=== PATIENT | male | born 1960 | race Caucasian/White ===

== ENCOUNTER 2017-04-24 08:48 | Day surgery (SDC) | payer OTHER, SELFPAY ==
[2017-04-24 09:10] VITALS: BP 132/87; PULSE 83; RESP 18; TEMP 37.1; O2SAT 97; BMI 34.2
[2017-04-24] MEDS: Cefazolin 2 GM in 0.9% Normal Saline 100 ML IV (12:02)
[2017-04-24] MEDS: Mupirocin Ointment 22gm Tube 1 APPLIC (12:31)
--- NOTE | 2017-04-24 12:35 | PCM.DC.ORTHO ---
Discharge Diet: No Restrictions - Leave dressing intact until post op visit May use hand as tolerated, change dressing if gets dirty Call with concerns Discharge Activity: May Not Drive May shower in (days): 1 Ice area for (Minutes): 20 - Every hour while awake. Weight Bearing Status: Weight bearing as tolerated Keep extremity elevated above heart level: Operative Extremity Call your doctor if your incision/area has: Continuous Slow Oozing, Sudden Increased Bleeding, Increased Pain/ Swelling, Increased Redness, Foul Smelling Discharge Call your doctor if you observe: Fever of 101 or Higher, Coldness, Increased Pain, Numbness or Tingling, Change in Color, Calf discomfort Allergies/Adverse Reactions: Allergies sulfadimethoxine Allergy (Mild, Verified 04/17/17 09:43) family history of reaction Medications to take at Discharge aspirin 81 mg chewable tablet 81 mg PO ONCE 04/14/17 lisinopril 20 mg tablet 20 mg PO QDAY 04/14/17 omeprazole 20 mg capsule,delayed release 40 mg PO DAILY cap 04/14/17 venlafaxine ER 75 mg capsule,extended release 24 hr 75 mg PO QDAY 04/14/17 Primary Care Physician: Vilma Page PA [Primary Care Provider] - Please Follow Up With: Jeri Pfeiffer, - [phone]
--- NOTE | 2017-04-24 12:38 | OP.PCM_ITS ---
Report of Operation Date of Procedure: 04/24/17 Pre-Operative Diagnosis: right carpal tunnel syndrome Post-Operative Diagnosis: same Surgery/Procedure Performed:: right carpal tunnel release Type of Anesthesia:: Ian Shay Anesthesiologist: Milton Dumont Estimated Blood Loss (mL): minimal Fluids Replaced: 800cc lr Description of Procedure: Preoperative note Patient is a 56 year old patient with nerve conduction study confirming carpal tunnel syndrome. Patient failed conservative treatment for carpal tunnel elected proceed with right carpal tunnel release. Risks benefits and alternatives surgery discussed with patient. Risks including but not limited to blood loss, blood clot, infection, neurovascular injury, failure procedure, loss of life and loss of limb. Patient is aware like proceed with right carpal tunnel release. Operative note Patient seen and examined preoperative holding area. right hand was marked. History and physical and consent reviewed. Patient was brought to the operating room placed supine on the operating table. Sign in, anesthesia, antibiotics were administered. right upper extremity was prepped and draped after Ian block was initiated. All bony prominences well-padded SCDs placed on bilateral lower extremities. We marked out our incisions for our carpal tunnel release at the intersection of Elio's line in the fourth ray flexed. We extended about a centimeter and a half. Timeout was performed. We then checked ensure that the Ian block was working with pickups which it was. We then used a 15 blade to make a skin incision. We then dissected down tenotomy syllable of the transverse carpal ligament. We then used a new 15 blade cut through the transverse carpal ligament down to the level of the median nerve. We then further released the median nerve the combination of the 15 blade and tenotomies. The nerve was grayish in color and adherent to the transverse carpal ligament volarly. We released the transverse carpal ligament distally to the fat pad and then proximally under standard technique. We then palpated to ensure that we released all of the transverse carpal ligament which we did. We irrigated the incision with copious amounts of sterile saline. All bleeders were coagulated. The incision was closed with interrupted 4-0 nylon stitches. Tourniquet was deflated for total working time of 14 minutes. Patient tolerated procedure well there were no complications. Patient transferred to recovery room in stable condition. Postoperative note Hospital pharmacy has prescription Leave dressing clean dry and intact Follow-up in 2 weeks Call with concerns This note was generated with [employer] software. It may contain incorrect words, spelling, and punctuation that were not noted in checking the note before signing.
[2017-04-24 12:45] VITALS: BP 117/75; BP 132/87; PULSE 70; RESP 16; TEMP 36.2; O2SAT 95
[2017-04-24 12:50] VITALS: BP 116/75; BP 132/87; PULSE 73; RESP 16; O2SAT 96
[2017-04-24 12:55] VITALS: BP 121/87; BP 132/87; PULSE 63; RESP 16; O2SAT 97
[2017-04-24 13:00] VITALS: BP 109/83; BP 132/87; PULSE 71; RESP 16; TEMP 36.4; O2SAT 96
[2017-04-24 13:30] VITALS: BP 132/87
== END 2017-04-24 13:35 | disposition home or self-care (01) ==
LOC: SDC 08:51 → AC 08:51
PROVIDERS: Family Provider Physician Assistant; PCP Physician Assistant; Visit Provider Orthopaedic Surgery
PROC: (CPT 64721; principal; 2017-04-24 10:50)
DX: G56.01 Carpal tunnel syndrome, right upper limb (principal); M19.042 Primary osteoarthritis, left hand; M19.041 Primary osteoarthritis, right hand; I10 Essential (primary) hypertension; I34.1 Nonrheumatic mitral (valve) prolapse; G47.30 Sleep apnea, unspecified; K21.9 Gastro-esophageal reflux disease without esophagitis; Z79.82 Long term (current) use of aspirin; Z79.899 Other long term (current) drug therapy; F32.9 Major depressive disorder, single episode, unspecified; F41.9 Anxiety disorder, unspecified; Z87.891 Personal history of nicotine dependence; Z86.718 Personal history of other venous thrombosis and embolism; Z86.711 Personal history of pulmonary embolism
CPT/HCPCS: 01810; 64721; J7120

== ENCOUNTER → 2017-06-03 09:07 | Outpatient (CLI) | payer OTHER, SELFPAY ==
--- NOTE | 2017-06-03 09:30 | RAD_ITS ---
STUDY: AIR-CONTRAST UPPER GI SERIES AND SMALL BOWEL FOLLOW-THROUGH EXAMINATION. REASON FOR EXAM: Male, 56 years old. Epigastric pain and chronic gastroesophageal reflux disease. FLUOROSCOPY TIME (if supplied): (1:06) minutes/seconds TECHNIQUE: The patient ingested barium. Multiple images of the esophagus, stomach and duodenum were obtained. Following this, a small bowel follow-through examination was performed. COMPARISON: None. FINDINGS: There is evidence of a moderate-sized hiatal hernia with gastroesophageal reflux. The remainder of the stomach and duodenum is unremarkable A small bowel follow-through examination was obtained. The small bowel transit is normal. There is no evidence of intrinsic or extrinsic small bowel disease. The terminal ileum is unremarkable. RAD/Upper GI/w Small Bowel IMPRESSION: Moderate sized hiatal hernia with gastroesophageal reflux. Electronically Signed: Atul Vicente MD at 13:52 EDT Tel [phone], Service support ,
== END ==
PROVIDERS: Family Provider Physician Assistant; PCP Physician Assistant; Visit Provider Surgery
DX: K21.9 Gastro-esophageal reflux disease without esophagitis (principal); K44.9 Diaphragmatic hernia without obstruction or gangrene
CPT/HCPCS: 74249

== ENCOUNTER 2017-07-06 05:51 | Day surgery (SDC) | payer OTHER, SELFPAY ==
[2017-07-06 06:12] VITALS: BP 161/82; PULSE 75; RESP 18; TEMP 36.2; O2SAT 98; BMI 35.4
--- NOTE | 2017-07-06 07:12 | PCM.OPRPT ---
Problem List (1) Gastro-esophageal reflux disease without esophagitis Status: Acute (2) Epigastric pain Status: Acute (3) Heartburn Status: Acute Report of Operation Date of Procedure: 07/06/17 Pre-Operative Diagnosis: k21.9 gastroesophageal reflux disease without esophagitis. r10.13 epigastric abdominal pain. r12 heartburn Post-Operative Diagnosis: Same Surgery/Procedure Performed:: 19325, 17035 esophagogastroduodenoscopy with 48 hour pH probe Type of Anesthesia:: MAC Anesthesiologist: Nico Vital Description of Procedure: Patient was brought into the endoscopy suite. Back of his throat was sprayed with Cetacaine spray. A bite-block was placed. He was placed in the left lateral decubitus position. He was given graded anesthesia. The scope was inserted in the back of the oropharynx and directed down through the esophagus into the stomach and into the duodenum without difficulty operative findings: 1. Duodenum: Normal appearance no mass lesions. 2. Stomach: Normal appearance no mass lesions no ulcerations. 3. Esophagus: Normal appearance no mass lesions patient Z line was at 40 cm and he did have a sliding type of hiatal hernia. Marked the pH probe to 34 cm. Placed the pH probe back in the oropharynx and directed it down through the esophagus to the appropriately marked line. Suction was applied. PH probe was deployed. Lippa scope was then inserted back into the oropharynx and directed down through the esophagus and a photograph was obtained showing the probe to be in good placement. He tolerated the procedure well. - Admit VTE Documentation VTE Present on Admission: No VTE Mechan Device Prophylaxis: None VTE Pharm Prophylaxis ordered?: No Reason prophylaxis not ordered:: Treatment Not Indicated
[2017-07-06 07:13] VITALS: BP 122/86; BP 161/82; PULSE 75; RESP 16; TEMP 36.4; O2SAT 95
[2017-07-06 07:20] VITALS: BP 149/100; BP 161/82; PULSE 70; RESP 16; O2SAT 95
[2017-07-06 07:25] VITALS: BP 135/86; BP 161/82; PULSE 68; RESP 16; O2SAT 96
[2017-07-06 07:26] VITALS: BP 137/93; BP 161/82; PULSE 68; RESP 16; TEMP 37.2; O2SAT 96
[2017-07-06 07:45] VITALS: BP 161/82
== END 2017-07-06 08:00 | disposition home or self-care (01) ==
LOC: EN 05:52 → AC 05:53
PROVIDERS: Family Provider Physician Assistant; PCP Physician Assistant; Visit Provider Surgery
PROC: (CPT 43235; principal; 2017-07-06 06:30)
DX: K21.9 Gastro-esophageal reflux disease without esophagitis (principal); K44.9 Diaphragmatic hernia without obstruction or gangrene; I34.1 Nonrheumatic mitral (valve) prolapse; I10 Essential (primary) hypertension; G47.30 Sleep apnea, unspecified; F41.9 Anxiety disorder, unspecified; F32.9 Major depressive disorder, single episode, unspecified; R10.13 Epigastric pain; Z79.82 Long term (current) use of aspirin; Z79.899 Other long term (current) drug therapy; Z87.891 Personal history of nicotine dependence; Z86.718 Personal history of other venous thrombosis and embolism; Z86.711 Personal history of pulmonary embolism
CPT/HCPCS: 43235; 91035; J7120

== ENCOUNTER 2017-08-06 07:47 | Day surgery (SDC) | payer OTHER, SELFPAY ==
[2017-08-06 07:58] VITALS: BP 143/97; PULSE 72; RESP 18; TEMP 36.4; O2SAT 97
--- NOTE | 2017-08-06 08:45 | NURSING ---
ESOPHAGEAL MANOMETRY COMPLETED TO LEFT NARE. LIDOCAINE JELLY USED TO LEFT NARE PRIOR TO INSERTION OF MANOMETRY CATHETER. PT TOLERATED PROCEDURE WELL, NO VOMITING, NO BLEEDING NOTED. PT DISCHARGED, DENIES ANY FURTHER QUESTIONS.
== END 2017-08-06 13:00 | disposition home or self-care (01) ==
LOC: EN 07:48
PROVIDERS: Family Provider Physician Assistant; PCP Physician Assistant; Visit Provider Surgery
PROC: F00ZJWZ Instrumental Swallowing and Oral Function Assessment using Swallowing Equipment (ICD-10-PCS; CPT 43235; principal; 2017-08-06 07:55)
DX: K21.9 Gastro-esophageal reflux disease without esophagitis (principal)
CPT/HCPCS: 91010

== ENCOUNTER 2017-08-13 09:27 | Day surgery (SDC) | payer OTHER, SELFPAY ==
--- NOTE | 2017-08-10 13:10 | EKG12_ITS ---
Test Reason : PRE-OP Blood Pressure : / mmHG Vent. Rate : 074 BPM Atrial Rate : 074 BPM P-R Int : 178 ms QRS Dur : 092 ms QT Int : 372 ms P-R-T Axes : 028 018 029 degrees QTc Int : 412 ms Normal sinus rhythm Normal ECG Confirmed by YANELIS XIONG, DALE ([id number]), assistant film editor DEEPA HILL ([id number]) on 08/11/2017 3:16:12 PM Referred By: Alejandro Quarles Confirmed By:DALE HILARIO MD
[2017-08-10 13:14] LABS: Hematocrit 42.5 % (40-54); Hemoglobin 14.2 g/dl (13.0-16.5); Mean Corp Hgb Conc 33.4 g/gl (32-36); Mean Corpuscular Hgb 29.7 pg (27.0-32.0); Mean Corpuscular Volume 88.9 fL (80-94); Mean Platelet Vol. 11.8 fl (6.2-12.0); Platelet Count 188 K/mm3 (150-450); RBC Distribution Width CV 12.6 % (11.6-14.6); RBC Distribution Width SD 40.7 fl (35.1-43.9); Red Blood Count 4.78 M/mm3 (4.6-6.2); White Blood Count 5.7 K/mm3 (4.4-11.0)
[2017-08-10 13:15] LABS: Scan Indicated on CBC? Y/N NO
[2017-08-10 13:39] LABS: Anion Gap 5 (5-15); BUN 15 mg/dL (7-18); BUN/Creat Ratio 17.3 RATIO (10-20); Calcium,Total 9.1 mg/dL (8.5-10.1); Chloride 107 mmol/L (98-107); Creatinine, Serum 0.87 mg/dL (0.70-1.30); EST Glomerular Filtration Rate 97 mL/min (>60); Est Glom Filt Rate - Afr Amer 118 mL/min (>60); Glucose 94 mg/dL (74-106); Potassium 4.2 mmol/L (3.5-5.1); Sodium Level 140 mmol/L (136-145)
[2017-08-13] VITALS (13 sets, daily range): BP systolic 123–158; BP diastolic 71–98; PULSE 64–81; RESP 16–18; TEMP 36.2–37.4; O2SAT 93–99; BMI 35.9
--- NOTE | 2017-08-13 11:44 | OP.PCM_ITS ---
Problem List (1) Gastro-esophageal reflux disease without esophagitis Status: Acute (2) Epigastric pain Status: Acute (3) Heartburn Status: Acute Report of Operation Date of Procedure: 08/13/17 Pre-Operative Diagnosis: k21.9 gastroesophageal reflux disease without esophagitis. r10.13 epigastric abdominal pain. r12 heartburn Post-Operative Diagnosis: same Surgery/Procedure Performed:: Laparoscopic Klaudia fundoplication Type of Anesthesia:: General Anesthesiologist: Enmanuel Melissa Description of Procedure: Patient was brought in the operating room. Placed supine on the bed. Under excellent general endotracheal intubation. The legs were placed up in stirrups and the same bag was deflated so that he would not move on the bed. Patient was placed in the head up position. The abdomen was sterilely prepped and draped in the usual fashion. Local was injected above the umbilicus. Dissection was carried down to the fascia. Fascia was grasped with a Yolanda. Varies needle was placed inside the abdomen. The abdomen was insufflated to 15 torr. A 10/12 trocar was placed. I then placed for other #5 trochars to wear on the right side along the costal margin to her placed on the left side along the costal margin. All of these under direct visualization without injury to underlying structures. Right lateral port liver retractor was placed inside the abdomen and retracted the left lobe of the liver in a anterior cephalad direction I started along the lesser curvature of the stomach and took this down with a harmonic dissector I dissected down to the right side of the curve. I dissected the crura off of the esophagus. I took this superiorly around the diaphragmatic curve. This dissection went quite well little to no blood loss. I dissected posterior underneath the esophagus and identified the inferior aspect of the left side of the curve. I then went to about the mid greater curvature the stomach and took the omentum off of this staying approximately 2-1/2-3 cm away from the stomach. I easily entered and nice avascular plane and dissected the rest of the stomach going up to the fundus off of the omentum. I then came down to the short gastrics I took this down with harmonic dissector once again excellent hemostasis without injury to the spleen came to the left side of the crura and then dissected the rest of the crura off of the esophagus. Once again excellent hemostasis was obtained. A [place] drain was placed around the esophagus and was retracted in a left superior direction by crew was identified quite nicely. A 50 Stateless bougie was placed down through the esophagus. Using the Ethicon suturing device I placed O Surgidac into the left and right crura ?2 and sutured these knots down in a fisherman's knot. I closed the diaphragmatic hiatus just so it fit to the esophagus with only 2 mm of space circumferentially around the esophagus. I now had a nice wide open posterior aspect of the esophagus I remove the bougie I placed the fundus of the stomach posterior to itself and let it rest it did not retract and there was no tension. I replaced the 50 Stateless bougie I then once again using the Ethicon suturing device place a O [place] through the fundus and through the esophagus into the greater curvature the stomach I sutured this down with a fisherman's knot I placed 1 more suture onto the fundus and into the greater curvature the stomach this time not going into the esophagus I sutured this down with a fisherman's knot as well I remove the 50 Stateless bougie a nice loose floppy wrap was completed. I had excellent hemostasis. I remove the [place] drain. I remove the liver retractor. Once again good hemostasis was noted. Fortunately #5 trochars were removed under direct visualization good hemostasis was noted. The fascia of the 1012 trocar was then closed with a [id number] stitch of 0 Vicryl skin incisions were closed with subcuticular stitches of 4-0 Monocryl Steri-Strips are applied sterile dressings were applied and the patient tolerated the procedure well. - Admit VTE Documentation VTE Present on Admission: No VTE Mechan Device Prophylaxis: SCD's VTE Pharm Prophylaxis ordered?: No Reason prophylaxis not ordered:: Treatment Not Indicated
[2017-08-13] MEDS: Lactated Ringers 1,000 ML 70 ML IV (11:45)
[2017-08-13] MEDS: Cefazolin 2 GM in 0.9% Normal Saline 100 ML IV (11:53)
[2017-08-13] MEDS: BUPIVACAINE LIPOSOME/PF 20 ML VIAL OPERA.SITE (13:15)
[2017-08-13] MEDS: HYDROmorphone 1 MG/ML Syringe IV (16:09)
[2017-08-13] MEDS: Cefazolin 1 GM/50 ML BAG IV (19:39)
[2017-08-14] MEDS: HYDROmorphone 1 MG/ML Syringe IV (00:09)
[2017-08-14 01:45] VITALS: BP 139/90; PULSE 80; RESP 18; TEMP 36.8; O2SAT 95
[2017-08-14] MEDS: Lactated Ringers 1,000 ML 70 ML IV (02:35)
[2017-08-14] MEDS: Cefazolin 1 GM/50 ML BAG IV (02:50)
[2017-08-14 07:52] VITALS: BP 165/99; PULSE 85; RESP 18; TEMP 36.7; O2SAT 96
[2017-08-14 07:55] VITALS: O2SAT 96
--- NOTE | 2017-08-14 07:56 | PCM.DC.GS ---
Discharge Diet: Soft diet - Stay with liquids for the first week. Discharge Activity: May Not Drive - for 1 week or while taking narcotic pain medicine. May shower in (days): 1 Lifting Restrictions: 10 pounds Call your doctor if your incision/area has: Continuous Slow Oozing, Sudden Increased Bleeding, Increased Pain/ Swelling, Increased Redness, Foul Smelling Discharge Call your doctor if you observe: Fever of 101 or Higher Suture Line Care: Avoid Pulling/Pushing, Avoid Pinching/Bending Additional Dressing/Incision Instructions:: Change or remove dressing in 4 days. Leave steri-strips in place for 1 week. Allergies/Adverse Reactions: Allergies sulfadimethoxine Allergy (Mild, Verified 08/07/17 09:00) family history of reaction Medications to take at Discharge aspirin 81 mg chewable tablet 81 mg PO DAILY 04/14/17 lisinopril 20 mg tablet 20 mg PO QDAY 04/14/17 omeprazole 20 mg capsule,delayed release 40 mg PO DAILY cap 04/14/17 venlafaxine ER 75 mg capsule,extended release 24 hr 75 mg PO QDAY 04/14/17 saw palmetto 500 mg capsule 500 mg PO DAILY 05/26/17 Primary Care Physician: Vilma Page PA [Primary Care Provider] -
== END 2017-08-14 09:26 | disposition home or self-care (01) ==
LOC: SDC 09:27 → AC 09:28 → MS3 08-14 10:58
PROVIDERS: Family Provider Physician Assistant; PCP Physician Assistant; Visit Provider Surgery
PROC: (CPT 43325; principal; 2017-08-13 10:55)
DX: K21.9 Gastro-esophageal reflux disease without esophagitis (principal); I34.1 Nonrheumatic mitral (valve) prolapse; I10 Essential (primary) hypertension; F32.9 Major depressive disorder, single episode, unspecified; F41.9 Anxiety disorder, unspecified; G47.30 Sleep apnea, unspecified; Z87.891 Personal history of nicotine dependence; Z79.82 Long term (current) use of aspirin; Z79.899 Other long term (current) drug therapy
CPT/HCPCS: 00790; 43280; 36415; 80048; 85027; 93005; 94762; J7120; J3490

== ENCOUNTER → 2018-12-23 08:05 | Outpatient (CLI) | payer OTHER, SELFPAY ==
[2018-12-23 08:04] VITALS: BMI 34.2
--- NOTE | 2018-12-23 08:08 | RAD_ITS ---
STUDY: X-RAY - LEFT KNEE REASON FOR EXAM: Pain. TECHNIQUE: 4 view(s) of the knee. COMPARISON: None. FINDINGS: Normal visualized distal femur. There are ossifications adjacent to the anterior tibial tubercle, a sequelae of remote Denisha-Schlatter's disease. Normal proximal tibiofibular articulation. Normal medial femorotibial compartment. Normal lateral femorotibial compartment. There are minimal marginal osteophytes of the patella without joint space narrowing of the patellofemoral articulation. The soft tissue structures are unremarkable. RAD/Knee 4 or More Views IMPRESSION: Sequelae of Denisha-Schlatter's disease. Minimal marginal osteophytes of the patella. Electronically Signed: Deandre Wooten MD at 15:03 EDT Tel , Service support ,
== END ==
PROVIDERS: Family Provider Physician Assistant; PCP Physician Assistant; Referring Provider Orthopaedic Surgery; Visit Provider Orthopaedic Surgery
DX: M92.52 Juvenile osteochondrosis of tibia tubercle (principal); M25.762 Osteophyte, left knee
CPT/HCPCS: 73564

== ENCOUNTER → 2018-12-30 12:55 | Outpatient (CLI) | payer OTHER, SELFPAY ==
[2018-12-30 09:46] VITALS: BMI 34.2
[2018-12-30 13:21] LABS: Pathologist Comment May follow
[2018-12-30 13:52] LABS: RBC /Synovial Fluid 0.079 10^6/uL (0); Synovial Fld Mononuclear WBC % 80.2 %; Synovial Fld Polynuclear WBC # 0.092 10^3/uL; Synovial Fld Polynuclear WBC % 19.8 %
[2018-12-30 14:25] LABS: AUTO B FLUID DILUENT BKGD CT WBC <0.1 RBC <0.01 (W<.1,R<.01); Color / Synovial Fluid Red (Pale Yellow); Source / Synovial Fluid KNEE; Source- Body Fluid SYNOVIAL
[2018-12-30 14:26] LABS: Appearance /Synovial Fluid Cloudy (CLEAR); Viscosity / Synovial Fluid Viscous (HIGH)
[2018-12-30 14:32] LABS: Lymph 30 %; Monocyte /Synovial Fluid 46 %; Neutrophil 24 % (0-25)
[2018-12-30 14:36] LABS: Body Fluid QC Type(s) BF1Q, BF2Q
[2018-12-31 10:11] LABS: Pathologist Review Reviewed
[2018-12-31 16:10] LABS: GLUCOSE, SYNOVIAL FLUID 141 mg/dL (.); PROTEIN, SYNOVIAL FLUID 3.7 g/dL (.)
== END ==
PROVIDERS: Family Provider Physician Assistant; PCP Physician Assistant; Referring Provider Orthopaedic Surgery; Visit Provider Orthopaedic Surgery
DX: M25.562 Pain in left knee (principal)
CPT/HCPCS: 82945; 84157; 87070; 87075; 87205; 89050; 89051; 89060

== ENCOUNTER 2020-02-09 10:00 | Outpatient (RCR) | payer OTHER, SELFPAY ==
[2018-12-30 09:46] VITALS: BMI 34.2
--- NOTE | 2020-01-24 10:30 | HP.PTEVAL ---
Patient's Visit Information LACEY NEWTON Jr. is a 59 year old M referred to Physical Therapy by RTISHA Barry with a diagnosis of LOW BACK PAIN POTENTIALLY ASSOCIATED WITH RADICULOPATHY. Date of Evaluation: 01/24/20 Physical Therapist: Magda Levine, PT, Cert MDT - Visit Plan Frequency: 2-3x /Week Duration: 4-6 Weeks Plan: US, E-STIM WITH MH OR CP, POSTURE CORRECTION/STRENGTHENING, INSTRUCTION IN APPROPRIATE BODY MECHANICS AND ACTIVITY MODIFICATIONS. DLS STARTING WITH A NEUTRAL SPINE PROGRESSING ROM TOLERATED. SHARDA LE ROM, STRETCHING AND STRENGTHENING. HEP INSTRUCTION. 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 ON INTERMITTENT FOR THIS - 9 DAYS OFF THIS YEAR AND 6 OF THEM HAVE BEEN IN THE LAST 3 WEEKS. Present symptoms: SHARDA LOW BACK PAIN. RIGHT GREATER THAN LEFT TODAY BUT NORMALLY FOR THE LAST 6-8 MONTHS WORSE ON THE LEFT. LEFT HIP, THIGH, LEG AND ANKLE PAIN NUMBNESS AND TINGLING. RIGHT THIGH PAIN, NUMBNESS AND TINGLING TO THE KNEE. RIGHT THIGH IS ALWAYS NUMB. SHARDA KNEE PAIN. Present since: YEARS. Pain Scale: WORST 8/10, LEAST 2/10. Currently: 5/10. WORSENING. Commenced as a result of: NO APPARENT REASON. Symptoms at onset: BACK. Worse: SQUATTING AND STANDING BACK UP, SITTING, STANDING, WALKING, LIFTING, BENDING. Better: SOMETIMES ICE, SOMETIMES HEAT, SOMTIMES LYING ON THE FLOOR WITH LEGS UP. Disturbed sleep: YES. Previous history/Previous treatment: CHIROPRACTOR. PHYSICAL THERPAY. NO GABY'S. NO BACK SURGERY. NO PRESCRIPTION PAIN MEDICINES BUT HAS TRIED SOME MUSCLE RELAXERS WITHOUT BENEFIT. Treatment this episode: CHIROPRACTOR 3 TIMES - HASN'T HELPED. STEROID ABOUT 3 WEEKS AGO WITH TEMPORARY BENEFIT. Coughing/sneezing/straining: POSITIVE. Gait: LIMPING MORE ON RIGHT LE NOW. TIME AND DISTANCE LIMITED. CAN'T STAND UP STRAIGHT. Difficulty initiating urinatin: YES BUT NO LOSS OF BOWEL OR BLADDER CONTROL. Accidents: MULTIPLE ACCIDENTS - NONE RECENT. Unexplained weight loss: NO. Imaging: MRI PENDING 01/30/20 OF BACK. RECENT BACK X-RAY SHOWS MILD TO MODERATE DEGENERATIVE CHANGES OF CARYL SPINE WHICH ARE UNCHANGED FROM 12/29/18. DISC SPACE NARROWING L45 AND L5S1. PMH: H/O BLOOD CLOTS, PSORIATIC ARTHRITIS, PSORIASIS, SLEEP APNEA, REFLUX, HYPERLIPIDEMIA, SINUSITIS, HTN, DEPRESSION, H/O RIGHT KNEE ARTHROSCOPIC SX, H/O R RCR ABOUT 10 YEARS AGO. - Objective Sitting/Standing Posture: POOR. PATIENT FREQUENT SHIFTS POSITION IN SITTING DURING SUBJECTIVE PORTION OF EVAL. Lordosis: REDUCED. Lateral shift: NO. Relevant shift: N/A. Active Correction of posture: WORSE. Other Observations: INDEP ANTALGIC GAIT INTO PT WITH DECREASED CADANCE, INCREASED GUARDING, INCREASED TRUNK FLEXION AND LIMP ON RIGHT LE. Motor deficit: SHARDA LE STRENGTH GROSSLY 5/5 EXCEPT RIGHT HIP 4-/5, LEFT HIP 4/5. Sensory deficit: RIGHT THIGH. ROM deficit: TIGHT SHARDA HS'S. Reflexes: SHARDA LE'S 2/3. Dural Signs: POSITIVE SHARDA LE'S RIGHT > LEFT. Lumbar mvmt loss: flex - MIN. ext - MIN. R SG - MOD. L SG - MIN. PATIENT C/O INCRASED LOW BACK PAIN WITH LUMBAR ROM TESTING ALL PLANES. Core strength: POOR. Palpation: TENDERNESS WITH PALPATION OF THE LOWER THORACIC SPINE AND RIGHT LUMBAR PARASPINALS. INCREASED MUSCLE TONE RIGHT PARASPINALS. NOT TENDER OF L345S1 SPINIOUS PROCESSES. TREATMENT: NEUROMUSCULAR REEDUCATION - RETRAINING OF MVMT AND POSTURE FOR SITTING, LYING AND STANDING ACTIVITIES. - Goals Goal 1:: DECREASE C/O BACK AND SHARDA LE SX'S. Goal Time Frame: 4-6 Weeks Goal 2:: IMPROVE PERSONAL CARE, LIFTING, WALKING, SITTING, STANDING, SOCIAL LIFE, TRAVEL AND WORK FUNCTION Goal Time Frame: 4-6 Weeks Goal 3:: INSTRUCT IN PROPHYLAXIS Goal Time Frame: 4-6 Weeks - Anticipated Interventions Patient/Client Instruction: Educate patient on: Condition, Plan of Care, Risk Factors, Benefits of Fitness Program For the Purpose of:: To improve self management Therapeutic Exercise to Include: Strength training, Body mechanics, Postural training, Flexibilty training, Neuromotor development, In an aquatic setting, Dynamic Lumbar Stabilization For the Purpose of:: To decrease pain, To improve muscle performance and motor function, To increase tolerance to activity/condition/position, To improve ability of physical actions for home/community/work/leisure TENS: Yes IF ES: Yes Cryotherapy (ice pack, ice massage): Yes Thermo therapy (hot pack): Yes Ultrasound (thermal/non thermal): Yes For the Purpose of:: To decrease pain, To improve nutrient delivery to tissue Thank you for the opportunity to evaluate your patient. For Medicare and Medicare HMO plans, please review the plan of care and approve it. It will need to be FAXED BACK to us at [phone] for Medicare purposes. For Medicare only, by signing this I certify the plan of care. Please let me know if there are questions or concerns regarding this plan of care. Physician Signature: Date:
--- NOTE | 2020-02-27 10:31 | HP.PT.NRP ---
LACEY NEWTON was seen in my office for initial evaluation on 01/24/20. The following Plan of Care was established for this patient: Initial Frequency: 2-3x /Week Initial Duration: 4-6 Weeks Patient/Client Instruction: Educate patient on: Condition, Plan of Care, Risk Factors, Benefits of Fitness Program For the Purpose of:: To improve self management Therapeutic Exercise to Include: Strength training, Body mechanics, Postural training, Flexibilty training, Neuromotor development, In an aquatic setting, Dynamic Lumbar Stabilization For the Purpose of:: To decrease pain, To improve muscle performance and motor function, To increase tolerance to activity/condition/position, To improve ability of physical actions for home/community/work/leisure TENS: Yes IF ES: Yes Cryotherapy (ice pack, ice massage): Yes Thermo therapy (hot pack): Yes Ultrasound (thermal/non thermal): Yes For the Purpose of:: To decrease pain, To improve nutrient delivery to tissue This patient was last seen in our office 02/09/20. Pertinent comments regarding their Physical therapy will appear below: This patient has not returned to Physical Therapy and is appropriate to return to MD for further follow-up as needed. At this point I will be discontinuing this patient from physical therapy. I would be happy to see this patient again in the future if found appropriate by the physician. Thank you! Magda Levine, PT, Cert MDT
== END 2020-02-09 19:00 | disposition home or self-care (01) ==
LOC: PT 10:00
PROVIDERS: PCP Physician Assistant; Referring Provider Physician Assistant; Visit Provider Physician Assistant
DX: M54.16 Radiculopathy, lumbar region (principal)
CPT/HCPCS: 97014; 97035; 97110; 97112; 97162; 97530; G0283

== ENCOUNTER 2022-05-21 11:34 | Day surgery (SDC) | payer OTHER, SELFPAY ==
[2022-05-21] VITALS (12 sets, daily range): BP systolic 137–160; BP diastolic 65–102; PULSE 67–77; RESP 16–18; TEMP 35.8–37; O2SAT 92–98; BMI 32.5
--- NOTE | 2022-05-21 | BON_PTH ---
PATIENT: LACEY NEWTON Jr. [place] [facility] [id number] AGE/SX: 61/M ROOM: RE05/21/[address]: Dr. Arron Ann MD : [id number] BED: DIS: 05/21/2022 SPEC #: [id number] RECD: 05/21/22 17:04 STATUS: HELLEN LORIE #: [id number] [place]: 05/21/22 00:[address]: Arron Ann DEPT: SURGICAL PATHOLOGY RECD BY: Luis A Gonzalez ENTERED: 05/22/22 08:37 SP TYPE: Bone OTHR DR: TRISHA aBrry Tissues: Bone of hand, NOS Procedures: Decalcification bone/plaque Surgery Specimen Level III HEADER OPERATION: Trapeziectomy of carpometacarpal joint of right thumb PRE-OP DIAGNOSIS: Osteoarthritis of carpometacarpal joint of right thumb TISSUE SUBMITTED: Trapezium bone MICROSCOPIC DIAGNOSIS Trapezium bone, excision: Degenerative and reparative change. AM:ghanshyam 05/26/2022 MICROSCOPIC DESCRIPTION Slides are reviewed. GROSS DESCRIPTION Received in fixative is one container labeled with the patient's name and designated trapezium bone. The specimen consists of multiple variable sized fragments of bone that in aggregate measure 4.0 x 3.0 x 1.0 cm. The largest piece measures 1.5 cm in greatest dimension and shows focal area of eburnation. Loss Prevention Manager sections are submitted in two cassettes after decalcification as follows: 1 ? smaller piece including small fragments of soft tissue, 2 ? largest piece. / SJ:ghanshyam 05/22/2022 TC:5 CPT: 06985, 02691
[2022-05-21] MEDS: Lactated Ringers 1,000 ML 15 ML IV ×2 (12:31→17:01)
--- NOTE | 2022-05-21 14:00 | PCM.HP.STD ---
HPI - General HPI Narrative LACEY NEWTON, is a 61 M who presents for right thumb cmc oa arthroplasty (trapeziectomy and suspensionplasty). no changes to h and p. explained post op care, narcotic counselling. he understands, ok to proceed. right thumb marked. MR#: [id number] Acct: [id number] Name:? LACEY NEWTON Jr. Rep #: [id number] : 1960 ? ? Provider: Dr. Arron Ann MD Age/Sex:? 61/M ? ? Location: [facility] [email or web address] Status: Signed Intake Vital Signs ? 03/09/2008:53 Height 6 ft Intake Visit Reasons:?BILAT HANDS Is patient in pain?: Yes Pain scale (1-10): 8 Allergies sulfadimethoxine Allergy (Mild, Verified 03/18/22 14:37) family history of reaction Medications aspirin 81 mg chewable tablet 81 mg PO DAILY 04/14/17 [History Confirmed 03/18/22] lisinopril 20 mg tablet 20 mg PO QDAY 04/14/17 [History Confirmed 03/18/22] omeprazole 20 mg capsule,delayed release 20 mg PO DAILY 03/09/20 [History Confirmed 03/18/22] PFSH Medical History?(Updated 03/18/22 @ 14:45 by Arron Ann MD) DVT left calf DVT left thigh DVT right arm Hypertension Mitral valve prolapse Osteoarthritis of carpometacarpal (CMC) joint of right thumb Pulmonary embolism Surgical History? History of appendectomy History of repair of hiatal hernia S/P appendectomy S/P carpal tunnel release S/P right knee arthroscopy S/P right rotator cuff repair Status post laparoscopic Klaudia fundoplication (~07/2017) Family History? Sister Diabetes Heart disease Hypertension CAD (coronary artery disease)Mother Heart disease Hypertension CAD (coronary artery disease) Social History? household members:? spouse and children housing:? house current occupational status:? employed Smoking Status:? Former smoker alcohol intake:? current alcohol intake frequency: holidays/special occasions only what type of physical activity do you participate in:? none do you feel safe at home:? Yes HPI BILAT HANDS Details: Parts of this documentation were recorded by a scribe, this documentation accurately reflects the service provided and the decisions made by me, Dr. Arron Ann MD 03/18/22 7319. LACEY NEWTON is a 61 year old M here today for? 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 [employer]. Works on all the equipment, [employer], [employer], [employer]. keeps it running. Pain is located in the thumb at the base, last cortisone 2 years ago, not helping anymore. Level is 7, there all the time, worse is using, flattening the hand makes it worse. Take ibuprofen, couple times a day. Smoker - no. Had a DVT and PE - 17 years ago. no numbness. hurts to put the hand and thumb flat. injections aren't working anymore. Ortho Exam General General: Yes no acute distress Neurologic: Yes alert and Yes oriented x3 Psychologic: Yes reasonable and appropriate Right Wrist/Hand Skin/Wound: Yes CDI, No Swelling, No Ecchymosis and Yes nail intact Right Wrist: Yes ROM-Extension 0-60, ROM-Flexion 0-80, ROM-Pronation 0-80, ROM-Supination 0-90, Carie's Test, CMC Grind and tender to palpate 1st dorsal compartment; No Snuffbox tenderness, Palpable Nodule, Tender to palpate triangular fibrocartilage complex or Distal radioulnar joint Motor: EPL: 5, FDP-2: 5, 1st Dorsal Interosseous: 5 and APB: 5 Sensation: Radial: I, Ulnar: I and Median: I WRIST: pain at the thumb base. callosities throughout hand. able to touch thumb to 5th digit. no z shape deformity. normal sens both sides thumb Left Wrist/Hand Skin/Wound: No Swelling and No Ecchymosis Supplemental Info 3 x-rays today taken of the right hand demonstrate stage III CMC osteoarthritis. Coding Level of Care Code Off vis,est,level 4 Diagnoses Osteoarthritis of carpometacarpal (CMC) joint of right thumb? M18.11 Time Spent (min) 30 Assessment and Plan Assessment and Plan (1) Osteoarthritis of carpometacarpal (CMC) joint of right thumb: ?Status:?Acute ?Plan: 61-year-old man with stage III CMC osteoarthritis.? He has tried years of conservative management including injections.? She is not interested in bracing or physical therapy or continue nonoperative management.? Surgery for this would be right thumb trapeziectomy and suspension plasty with an Arthrex tight rope button in my hands.? Discussed the pros and cons risks and benefits as well as other recovery associated with this likely 6 to 8 weeks before returning to his job with any sort of heavy lifting or gripping.? He has had DVT in the past he will be at risk for potentially having an additional 1 we discussed this as well as possible need for blood products which she has consented to go ahead with that.? He understands and no further questions or concerns.? He may lose some strength with this operation but is reliable for pain relief. Pros and cons risks and benefits were discussed with the patient including but not limited to infection, pain, stiffness, bleeding, damage to surrounding structures, neurovascular injury, recurrence or retear, failure or wear of hardware or fixation, instability, fracture, deep vein thrombosis and pulmonary embolism, anesthetic risks, patient dissatisfaction, need for further surgery and other risks.? Patient understood and wished to proceed with surgery, and signed the informed consent documentation. [facility] Medical History (Updated 05/07/22 @ 15:21 by Madisyn Rose) Alcohol use Anxiety Arthritis Back pain Cardiology follow-up encounter CPAP (continuous positive airway pressure) dependence DVT left calf DVT left thigh DVT right arm Former smoker Gastric reflux History of edema History of pain when walking History of stress test History of ulceration Hypertension Loss of hearing Marijuana use Migraine headache Mitral valve prolapse Osteoarthritis of carpometacarpal (CMC) joint of right thumb Prostate disease Pulmonary embolism Restless legs Shortness of breath on exertion Wears glasses Home Medications aspirin 81 mg chewable tablet 81 mg PO DAILY 04/14/17 [History Last Taken 08/10/17] lisinopril 20 mg tablet 20 mg PO QDAY 04/14/17 [History Last Taken 05/21/22 05:00] omeprazole 20 mg capsule,delayed release 20 mg PO DAILY 03/09/20 [History Last Taken 05/21/22 05:00] Allergy/AdvReac Type Severity Reaction Status Date / Time sulfadimethoxine Allergy Mild family Verified 04/02/22 13:13 history of reaction metoprolol [From Lopressor] Allergy Rash Verified 05/07/22 15:22 Family History Sister Diabetes Heart disease Hypertension CAD (coronary artery disease) Mother Heart disease Hypertension CAD (coronary artery disease) Surgical History (Updated 05/07/22 @ 15:21 by Madisyn Rose) History of appendectomy History of cardiac catheterization History of repair of hiatal hernia S/P appendectomy S/P carpal tunnel release S/P right knee arthroscopy S/P right rotator cuff repair Status post laparoscopic Klaudia fundoplication (~07/2017) Social History household members: spouse and children housing: house current occupational status: employed Smoking Status: Former smoker alcohol intake: current alcohol intake frequency: holidays/special occasions only what type of physical activity do you participate in: none do you feel safe at home: Yes Vital Signs Vital Signs Vital Signs: 05/21/22 12:26 05/21/22 12:26 Temperature 98.6 F Temperature Source Temporal Pulse Rate 68 Respiratory Rate 18 Respiratory Pattern Normal Blood Pressure 146/85 H Blood Pressure Mean 105 Blood Pressure Source Monitor Blood Pressure Position Sitting Blood Pressure Location Left Arm Pulse Ox 98 Oxygen Delivery Method Room Air Weight Weight: 240 lb 4.862 oz Body Mass Index (BMI) 32.5
[2022-05-21] MEDS: Cefazolin 2 GM in 0.9% Normal Saline 100 ML IV (14:31)
--- NOTE | 2022-05-21 14:34 | RAD_ITS ---
STUDY: X-RAY - RIGHT WRIST REASON FOR EXAM: Male, 61 years old. Intraoperative imaging. TECHNIQUE: 1 view(s) of the wrist were obtained. COMPARISON: None. FINDINGS: Intraoperative imaging provided for trapezoidectomy and suspension plasty. RAD/Wrist 2 Views IMPRESSION: Intraoperative imaging provided for surgical procedures. Electronically Signed: Atul Vicente MD at 9:46 EST ,
--- NOTE | 2022-05-21 16:33 | OP.PCM_ITS ---
Problems Associated Problem List Diagnoses (1) Osteoarthritis of carpometacarpal (CMC) joint of right thumb: Report of Operation Date of Procedure: 05/21/22 Pre-Operative Diagnosis: right thumb CMC OA Post-Operative Diagnosis: same Surgery/Procedure Performed:: right thumb trapeziectomy and suspensionplasty (CMC tight rope arthrex) Surgeon: Arron Ann Type of Anesthesia: General Anesthesiologist: Gio Etienne Estimated Blood Loss (mL): 20 Description of Procedure: Patient brought to the room theater. Placed supine on the operating room table. Right side arm positioner used. Tourniquet applied to the right upper extremity 18 inch appropriately padded. 2 g IV Ancef administered prior to start of the procedure. General anesthesia induced. All bony prominences padded. SCDs on the legs. Upper extremity prepped and draped in the usual sterile fashion chlorhexidine-based prep solution allowing over 3 minutes drying time prior to draping. Preoperative timeout performed to confirm the site patient and surgery. Began by elevating the limb inflating the tourniquet to 250 mmHg. Made an incision over the first dorsal compartment at the thumb CMC joint. I incised the tendon sheath at the dorsal aspect of the first dorsal compartment. I made capsulotomy longitudinally. Protected the superficial branch of the radial nerve. Protected the dorsal branch of the radial artery in the anatomic snuffbox. Identified the trapezium under direct visualization as well as with intraoperative fluoroscopy guidance. Try to use the McGlamry elevator and corkscrew but I was unable to take the bone out in 1 piece therefore used a rongeur to remove the bone in a piecemeal fashion. Thoroughly irrigated the wound. FCR tendon was intact. I then made a small dorsal incision just ulnar to the base of the second metacarpal of the index finger. Carried dissection down protected the extensor tendons. Used the guide to pass the Arthrex guidewire at the base of the first through to the base of the second metacarpal ensuring that the guidewire exited in the mid aspect of the bone, and not volar or dorsal. Passed this all the way through the end attach the sutures to the looped end of the K wire passing device. Passes all the way through and seated the button on the radial side of the base first metacarpal to the thumb. I then attached the button after cutting at the swedge. Made sure the button was seating nicely onto the cortex of both bones. Tied this with appropriate tension, 5 alternating throws. Looked at the Shenton's line of the hand as well as the amount of shuck test and ensure that the patient gets her hand flat with the thumb in full opposition ab duction and abduction. Did the can test with a rolled up towel. This was acceptable final radiographs taken and taken and saved onto the system. Sutures cut short. Wound thoroughly irrigated. Unable to close the capsule due to calcification that had to be removed. Toruniquet let down. Hemostasis achieved. Subcutaneous tissue closed with 3-0 Vicryl and skin with 3-0 Monocryl. Skin cleaned with wet and dry dressing followed application of Steri- Strips Adaptic 4 x 4 gauze and Scottie wrap. Patient woken up from the general anesthetic transferred off the operating table taken to postanesthetic care unit in stable condition. All sponge needle instrument counts were correct. Plan to the patient gentle range of motion and follow-up in the office in 2 days time. Grafts/Implants Used: arthrex CMC tight rope with buttons Complications none Admit VTE Documentation VTE Present on Admission: No VTE Mechan Device Prophylaxis: SCD's VTE Pharm Prophylaxis ordered?: No Reason prophylaxis not ordered:: Treatment Not Indicated Procedures Musculoskeletal 20xxx-29xxx: Other Procedure See Report
--- NOTE | 2022-05-21 16:48 | EX.PCM.DISCH ---
Discharge Instructions Diet Discharge Diet: No restrictions Activity Ice area for (Minutes): 10 Lifting Restrictions: no heavy lifting or gripping Keep extremity elevated above heart level: Operative Extremity Dressing / Incision Call your doctor if your incision/area has: Continuous Slow Oozing, Sudden Increased Bleeding, Increased Pain/ Swelling, Increased Redness, Foul Smelling Discharge and Swelling at the incision site Remove Dressing in: leave in place till F/U Follow Up Care Please Follow Up With: Arron Ann MD When: 2 days Test Results: Test results from this visit will be discussed in further detail at your follow-up appointment, if applicable. Discharge Plan Admission Attending Provider: Arron Ann Primary Care Provider: Vilma Page Discharge Orders/Prescriptions Prescriptions: New oxycodone-acetaminophen [Percocet] 5-325 mg tablet 1 tab PO Q4H MDD 6 PRN (Reason: pain) 7 Days Qty: 20 0RF No Action lisinopril 20 mg tablet 20 mg PO QDAY aspirin 81 mg tablet,chewable 81 mg PO DAILY omeprazole 20 mg capsule,delayed release(DR/EC) 20 mg PO DAILY Other Ambulatory Orders: Basic Metabolic Profile (BMP) (Routine) Timeframe: [id number] Facility: [facility] [place] - Location: Laboratory Ordered By: Dr. Milton Dumont CBC-Complete Blood Cnt No Diff (Routine) Timeframe: [id number] Facility: [facility] [place] - Location: Laboratory Ordered By: Dr. Milton Dumont 12 Lead EKG (Routine) Timeframe: [id number] Facility: [facility] [place] - Location: Cardiovascular Services Ordered By: Arron Ann Referrals / Follow Up: Vilma Page PA [Primary Care Provider] - Arron Ann MD [Med Staff - Active Staff] - Disposition Disposition (needs filled in before D/C Order can be placed): Home, Self Care
[2022-05-21] MEDS: HYDROcodone Bitartrate/Apap 5/325 Tablet PO (17:45)
[2022-05-21] MEDS: Ondansetron 4 MG/2 ML Vial IV (18:03)
--- NOTE | 2022-05-21 20:47 | SUR.PHASEI ---
Post surgery, the patient had periods of hot flashes where he became diaphoretic, flushed and then would retch. Patient states he is unable to vomit because he has had a Klaudia surgery in the past. No emesis occurred. The patient would then rest with his eyes closed. When he was sleeping, his O2 sat would drift into the 80s, but when he awaken, his O2 sat would return to the 90s. States his right hand is sore, but the pain is tolerable at 1845. At approximately, 1850, a strange smell was noted in the PACU, the patient was transferred to AC room 2.
== END 2022-05-21 20:05 | disposition home or self-care (01) ==
LOC: SDC 11:35 → AC 11:36
PROVIDERS: PCP Physician Assistant; Referring Provider Orthopaedic Surgery Sports Medicine; Visit Provider Orthopaedic Surgery Sports Medicine
PROC: (CPT 25447; principal; 2022-05-21 13:30)
DX: M18.11 Unilateral primary osteoarthritis of first carpometacarpal joint, right hand (principal); I25.10 Atherosclerotic heart disease of native coronary artery without angina pectoris; I34.1 Nonrheumatic mitral (valve) prolapse; I10 Essential (primary) hypertension; Z79.01 Long term (current) use of anticoagulants; Z79.82 Long term (current) use of aspirin; Z79.899 Other long term (current) drug therapy; Z86.711 Personal history of pulmonary embolism; Z86.718 Personal history of other venous thrombosis and embolism; Z87.891 Personal history of nicotine dependence
CPT/HCPCS: 25447; 73100; 76000; 88304; 88311; C1776; J7120; J2405

== ENCOUNTER 2022-09-30 13:00 | Emergency (ER) | payer OTHER, SELFPAY ==
[2022-09-30 13:02] VITALS: BP 167/97; PULSE 81; RESP 18; TEMP 36.1; O2SAT 97; BMI 32.5
--- NOTE | 2022-09-30 13:29 | VDLE_ITS ---
Reason For Study: Rt Leg Pain RIGHT LEFT GSV is DILATED and NONCOMPRESSIBLE with mixed CFV is patent and compressible. intraluminal echoes noted from proximal thigh to knee. Knee to ankle appears patent and compressible. CFV is compressible, spontaneous, phasic, competent and demonstrates normal augmentation. FV is compressible, spontaneous, phasic, competent and demonstrates normal augmentation. POP V is compressible, spontaneous, phasic, competent and demonstrates normal augmentation. T/P Trunk is compressible. PTV is compressible. RT PerV is compressible. Procedure This is a venous duplex using B-mode, color flow and spectral Doppler. Exam performed portable in ED. The exam was diagnostic. A preliminary report was called and/or faxed to ED VERÓNICA Warner. VL/Venous Duplex US, Unilateral Interpretation Summary There is no evidence of right lower extremity deep vein thrombosis. Superficial thrombophlebitis right great saphenous vein from the proximal thigh to the knee. Normal flow patterns left common femoral vein Ordering Physician: Stephen Long Referring Physician: Vilma Page Performed By: Ted Phipps RVT
--- NOTE | 2022-09-30 15:11 | EDS_ITS ---
HPI History of Present Illness Chief Complaint: Lower Extremity Injury Informant: patient Narrative Narrative: Pain redness right inner thigh noted yesterday. Pain first that made him looked down and noted some redness. He marked it yesterday. Today redness moved up the leg. No fevers. No injuries. Denies history of diabetes. No fevers or chills. He had a deep vein thrombosis of his left leg that caused a PE 17 years ago he is on Coumadin for a year. 5 years ago had superficial thrombophlebitis left inner thigh that was self-limiting. He states he had extensive clotting factor work-up that was negative. He denies recent travel surgeries or immob ilizations. No history of PE or DVT. Took 2 aspirins earlier prior to arrival. Prior similar symptoms: Yes PFSH PFSH Medical History Alcohol use Anxiety Arthritis Back pain Cardiology follow-up encounter CPAP (continuous positive airway pressure) dependence DVT left calf DVT left thigh DVT right arm Former smoker Gastric reflux History of edema History of pain when walking History of stress test History of ulceration Hypertension Loss of hearing Marijuana use Migraine headache Mitral valve prolapse Osteoarthritis of carpometacarpal (CMC) joint of right thumb Prostate disease Pulmonary embolism Restless legs Shortness of breath on exertion Wears glasses Home Medications aspirin 81 mg chewable tablet 81 mg PO DAILY 04/14/17 [History Last Taken 08/10/17] lisinopril 20 mg tablet 20 mg PO QDAY 04/14/17 [History Last Taken 05/21/22 05:00] omeprazole 20 mg capsule,delayed release 20 mg PO DAILY 03/09/20 [History Last Taken 05/21/22 05:00] Allergy/AdvReac Type Severity Reaction Status Date / Time sulfadimethoxine Allergy Mild family Verified 09/30/22 13:03 history of reaction metoprolol [From Lopressor] Allergy Rash Verified 09/30/22 13:03 Family History Sister Diabetes Heart disease Hypertension CAD (coronary artery disease) Mother Heart disease Hypertension CAD (coronary artery disease) Surgical History History of appendectomy History of cardiac catheterization History of repair of hiatal hernia S/P appendectomy S/P carpal tunnel release S/P right knee arthroscopy S/P right rotator cuff repair Status post laparoscopic Klaudia fundoplication (~07/2017) Social History household members: spouse and children housing: house current occupational status: employed Smoking Status: Current every day smoker tobacco type: cigarettes alcohol intake: current alcohol intake frequency: holidays/special occasions only what type of physical activity do you participate in: none do you feel safe at home: Yes ROS ROS ED Constitutional Constitutional ED: Denies chills, fever(s) or sweats Eyes Eyes: Denies change in vision ENT ENT ED: Denies dysphagia or sore throat Cardiovascular Cardiovascular: Denies chest pain, leg edema, palpitations or racing heartbeat Respiratory/Chest Respiratory/Chest: Denies cough, dyspnea or dyspnea on exertion Gastrointestinal Gastrointestinal: Denies abdominal pain, diarrhea, nausea or vomiting Genitourinary Genitourinary ED: Denies dysuria, hematuria or urinary frequency Musculoskeletal Musculoskeletal: Reports extremity pain; Denies back pain or neck pain Integumentary Denies rash or wounds Neurologic Neurologic: Denies headache(s), paresthesias or weakness EXAM Physical Exam Const Vital Signs: 09/30/22 13:02 09/30/22 15:32 Temperature 97 F L Temperature Source Temporal Pulse Rate 81 66 Respiratory Rate 18 16 Blood Pressure 167/97 H 155/97 H Blood Pressure Mean 120 116 Pulse Ox 97 99 Oxygen Delivery Method Room Air Room Air Positive well nourished and well developed General Appearance ED: well developed and NAD HEENT Reports moist mucous membranes normocephalic and atraumatic Eyes PERRL, EOMs intact bilaterally and conjunctivae normal General Eye ED: Yes normal appearance of both eyes Neck no lymphadenopathy and supple General: Negative for tenderness Chest Wall Chest: Negative for tenderness Resp normal respiratory effort and normal air movement Effort and Inspection: symmetric chest movement; Negative for respiratory distress Cardio regular rate, regular rhythm and no murmurs Peripheral Pulses: pulses 2+ throughout GI normal to inspection, nondistended, normoactive bowel sounds and non-tender Palpation: Negative for guarding or rebound tenderness present Back/Spine no CVA tenderness and no thoracic nor lumbar tenderness Extremity Extremity Narrative: Right lower extremity no swelling there is a patch of redness distal medial thigh tender to palpation no palpable cords. Previous outline from yesterday. Extension of erythema slightly above this proximally to the mid thigh. Distal pulses are intact General Extremety ED: Negative for edema or tenderness General Extremity: Negative for edema Neuro oriented x3 and no sensory deficits noted Sensorium / Orientation: awake and alert Skin Skin Narrative: See above MDM MDM MDM Narrative Medical decision making narrative: Interventions / MDM: Differential diagnosis: Superficial thrombophlebitis, Diagnosis considered but do not suspect: Cellulitis, however pain with superficial thrombophlebitis more likely caused from inflammatory process and not infectious. My EKG interpretation: N/A Imaging independently reviewed and interpreted by myself: Right lower extremity DVT studies negative for DVT however noted confirmed superficial thrombophlebitis at the area of his symptoms. External documents reviewed: N/A Test considered but not ordered:N/A ED course: Patient erythema is outlined no fevers no chills. He had pain first day for ultrasound was obtained confirming superficial thrombophlebitis. Discussed with vascular department it was greater saphenous vein. There is no DVT. He has no chest symptoms. No indications for anticoagulants with it being superficial. He will monitor symptoms with inflammatory concerns from throm bolysis no indication for antibiotics at this time. He will use ibuprofen every 6 hours warm compresses. The recurrent symptoms has not seen vascular surgeon in the past he is given follow-up with vascular surgery as an outpatient. Return precautions. All questions were answered. Re-evaluation: stable Disposition discussed with patient/family/significant other: Patient Case discussed with consulting clinician: N/A This note was generated with [employer] dictation software. It may contain incorrect words, spelling, and punctuation that were not noted in checking the note before signing. Radiography Diagnostic Testing: Clinical Impression(s) from Imaging Studies Venous Doppler Study 09/30/22 13:29 Interpretation Summary There is no evidence of right lower extremity deep vein thrombosis. Superficial thrombophlebitis right great saphenous vein from the proximal thigh to the knee. Normal flow patterns left common femoral vein Ordering Physician: Stephen Long Referring Physician: Vilma Page Performed By: Ted Phipps RVT Discharge Plan Triage Chief Complaint: Lower Extremity Injury ED Provider: Stephen Long Dx/Rx/DC Orders Clinical Impression: Superficial thrombophlebitis of right leg Instructions: ED Thrombophlebitis, Superficial Prescriptions: No Action lisinopril 20 mg tablet 20 mg PO QDAY aspirin 81 mg tablet,chewable 81 mg PO DAILY omeprazole 20 mg capsule,delayed release(DR/EC) 20 mg PO DAILY Stand Alone Forms: ED Work / School Excuse Primary Care Provider: Vilma Page Referrals: Enmanuel Regan MD [Med Staff - Active Staff] - 1 Week Vilma Page PA [Primary Care Provider] - Activity Restrictions/Additional Instructions: Superficial thrombophlebitis seen on your right inner thigh, there is no deep vein thrombosis. Ibuprofen 6 mg every 6 hours discussed[address] Follow with Dr. Regan. Return if worsening symptoms if you develop chest pain shortness of breath. Disposition Disposition: Home, Self Care Discharge Date/Time: 09/30/22 15:34
[2022-09-30 15:32] VITALS: BP 155/97; PULSE 66; RESP 16; O2SAT 99
== END 2022-09-30 15:34 | disposition home or self-care (01) ==
PROVIDERS: Emergency Provider Emergency Medicine; PCP Physician Assistant; Visit Provider Emergency Medicine
DX: I80.01 Phlebitis and thrombophlebitis of superficial vessels of right lower extremity (principal); I10 Essential (primary) hypertension; F17.210 Nicotine dependence, cigarettes, uncomplicated; Z79.82 Long term (current) use of aspirin; Z79.899 Other long term (current) drug therapy; Z86.711 Personal history of pulmonary embolism; Z86.718 Personal history of other venous thrombosis and embolism
CPT/HCPCS: 93971; 99282; J7040

== ENCOUNTER 2022-10-06 18:38 | Emergency (ER) | payer OTHER, SELFPAY ==
[2022-10-06 18:41] VITALS: BP 181/92; PULSE 83; RESP 14; TEMP 36.1; O2SAT 96; BMI 34.7
--- NOTE | 2022-10-06 19:34 | US_ITS ---
We are attempting to reach an attending provider to discuss findings. An addendum with communication details will be sent when the communication is complete. STUDY: VENOUS DOPPLER ULTRASOUND - BILATERAL LOWER EXTREMITIES REASON FOR EXAM: Male, 61 years old. -- PAIN TECHNIQUE: Ultrasound evaluation of the deep vein system to include caban-scale imaging and compression was performed. Caban-scale imaging and Doppler sonographic evaluation, including duplex spectral analysis and qualitative color flow sonography, was performed. COMPARISON: 09/30/2022 FINDINGS: RIGHT LEG Common Femoral Vein: Normal compression, spontaneity and augmentation. Normal color Doppler. Common Femoral Vein/Greater Saphenous Junction: Partially occlusive thrombus. Deep Femoral Vein: Normal compression, spontaneity and augmentation. Normal color Doppler. Femoral Proximal: Normal compression, spontaneity and augmentation. Normal color Doppler. Femoral Middle: Normal compression, spontaneity and augmentation. Normal color Doppler. Femoral Distal: Normal compression, spontaneity and augmentation. Normal color Doppler. Popliteal Vein: Normal compression, spontaneity and augmentation. Normal color Doppler. Posterior Tibial Vein: Normal compression, spontaneity and augmentation. Normal color Doppler. Peroneal Vein: Normal compression, spontaneity and augmentation. Normal color Doppler. LEFT LEG Common Femoral Vein: Normal compression, spontaneity and augmentation. Normal color Doppler. Common Femoral Vein/Greater Saphenous Junction: Normal compression, spontaneity and augmentation. Normal color Doppler. Deep Femoral Vein: Normal compression, spontaneity and augmentation. Normal color Doppler. Femoral Proximal: Normal compression, spontaneity and augmentation. Normal color Doppler. Femoral Middle: Normal compression, spontaneity and augmentation. Normal color Doppler. Femoral Distal: Normal compression, spontaneity and augmentation. Normal color Doppler. Popliteal Vein: Normal compression, spontaneity and augmentation. Normal color Doppler. Posterior Tibial Vein: Normal compression, spontaneity and augmentation. Normal color Doppler. Peroneal Vein: Normal compression, spontaneity and augmentation. Normal color Doppler. US/Venous Duplex Imag/Cb Extrem IMPRESSION: Positive for deep venous thrombosis at the saphenofemoral junction. Electronically Signed: Gerry Alcazar MD at 20:51 EDT ,
[2022-10-06 19:43] LABS: Absolute Lymphocyte Count 1.69 X10^3/uL (0.83-4.51); Absolute Neutrophil Count 2.6 X10^3/uL (2.0-7.7); Basophil# 0.04 X10^3/uL; Basophil% 0.8 % (0-1); Eosinophil# 0.27 X10^3/uL; Eosinophils% 5.4 % (0-5); Hematocrit 37.1 % (40-54); Hemoglobin 12.5 g/dL (13.0-16.5); Lymphocyte # 1.69 X10^3/ul (0.83-4.51); Lymphocyte % 33.7 % (19-41); Mean Corp Hgb Conc 33.7 g/dL (32-36); Mean Corpuscular Hgb 30.6 pg (27.0-32.0); Mean Corpuscular Volume 90.9 fL (80-94); Mean Platelet Vol. 11.7 fl (6.2-12.0); Monocyte# 0.38 X10^3/uL; Monocyte% 7.6 % (0-10); NRBC Flagged by Analyzer 0 % (0-5); Neutrophil # 2.61 X10^3/uL (2.7-7.7); Neutrophil % 52.1 % (47-70); Platelet Count 141 K/mm3 (150-450); RBC Distribution Width CV 11.9 % (11.6-14.6); RBC Distribution Width SD 39.4 fl (35.1-43.9); Red Blood Count 4.08 M/mm3 (4.6-6.2)
--- NOTE | 2022-10-06 19:46 | EDS_ITS ---
HPI History of Present Illness Chief Complaint: General Illness Informant: patient Onset/Context/Timing Onset: Weeks (1) Context: Gradual Onset Timing: Continuous Quality: Sharp Location: Right thigh Worsened by: Walking Relieved by: Nothing Narrative Narrative: Patient presents with pain and swelling to his right thigh that has been getting worse over the last week. Patient was seen here at that time. Patient states she was diagnosed with superficial phlebitis at that time. Patient was instructed to use warm compresses to the area. Patient was instructed take Tylenol or ibuprofen as needed for pain. Patient states he has been doing all of this and the redness and swelling is getting worse. Patient denies any fevers or chills. Patient denies any discharge or drainage. Patient denies any trauma to the area. Patient does have a history of DVTs in the past and has been on anticoagulants in the past. Patient is not currently on any anticoagulants. Patient is concerned that the superficial phlebitis has extended into the deep vein system. [facility] Medical History Alcohol use Anxiety Arthritis Back pain Cardiology follow-up encounter CPAP (continuous positive airway pressure) dependence DVT left calf DVT left thigh DVT right arm Former smoker Gastric reflux History of edema History of pain when walking History of stress test History of ulceration Hypertension Loss of hearing Marijuana use Migraine headache Mitral valve prolapse Osteoarthritis of carpometacarpal (CMC) joint of right thumb Prostate disease Pulmonary embolism Restless legs Shortness of breath on exertion Wears glasses Home Medications aspirin 81 mg chewable tablet 81 mg PO DAILY 04/14/17 [History Last Taken 08/10/17] lisinopril 20 mg tablet 20 mg PO QDAY 04/14/17 [History Last Taken 05/21/22 05:00] omeprazole 20 mg capsule,delayed release 20 mg PO DAILY 03/09/20 [History Last Taken 05/21/22 05:00] rivaroxaban 15 mg tablet (Xarelto) 15 mg PO BID #42 TABLETS 10/06/22 [Rx Last Taken Unknown] Allergy/AdvReac Type Severity Reaction Status Date / Time sulfadimethoxine Allergy Mild family Verified 10/06/22 18:40 history of reaction metoprolol [From Lopressor] Allergy Rash Verified 10/06/22 18:40 Family History Sister Diabetes Heart disease Hypertension CAD (coronary artery disease) Mother Heart disease Hypertension CAD (coronary artery disease) Surgical History History of appendectomy History of cardiac catheterization History of repair of hiatal hernia S/P appendectomy S/P carpal tunnel release S/P right knee arthroscopy S/P right rotator cuff repair Status post laparoscopic Klaudia fundoplication (~07/2017) Social History household members: spouse and children housing: house current occupational status: employed Smoking Status: Current every day smoker tobacco type: cigarettes alcohol intake: current alcohol intake frequency: holidays/special occasions only what type of physical activity do you participate in: none do you feel safe at home: Yes ROS ROS ED Constitutional Constitutional ED: Denies chills or fever(s) Eyes Eyes: Denies blurry vision or change in vision ENT ENT ED: Denies rhinorrhea or sore throat Cardiovascular Cardiovascular: Denies chest pain or palpitations Respiratory/Chest Respiratory/Chest: Denies cough or dyspnea Gastrointestinal Gastrointestinal: Denies nausea or vomiting Genitourinary Genitourinary ED: Denies dysuria or hematuria Musculoskeletal Musculoskeletal: Denies back pain or neck pain Integumentary Denies abscess or rash Neurologic Neurologic: Denies headache(s) or weakness Allergic/Immunologic Allergic/Immunologic ED: Denies mouth swelling or urticaria EXAM Physical Exam Const Vital Signs: 10/06/22 18:41 10/06/22 18:49 10/06/22 21:16 Temperature 97 F L Temperature Source Temporal Pulse Rate 83 67 Respiratory Rate 14 16 Respiratory Pattern Normal Blood Pressure 181/92 H 167/97 H Blood Pressure Mean 121 120 Pulse Ox 96 98 Oxygen Delivery Method Room Air Room Air Positive well nourished and well developed General Appearance ED: well developed and NAD HEENT Reports moist mucous membranes Neck supple and no JVD Extremity Extremity Narrative: There is some erythema and warmth of the medial aspect of the right thigh. There is no fluctuance. There is no discharge or drainage. There is no calf tenderness noted. There is good range of motion of the right hip and right knee. There is no deformity noted. General Extremety ED: Yes tenderness; Negative for edema General Extremity: Negative for edema Neuro oriented x3, CN's II-XII intact bilaterally and no sensory deficits noted Sensorium / Orientation: alert Motor Exam: strength 5/5 throughout Psych mental status grossly normal MDM MDM MDM Narrative Medical decision making narrative: Differential diagnosis includes DVT, cellulitis, and superficial phlebitis. Venous duplex of the right lower extremity will be obtained to assess for DVT. CBC will be obtained to assess for leukocytosis and anemia. Basic metabolic profile will be obtained to assess for electrolyte abnormality and renal function. PT with INR and PTT will be obtained to assess for coagulopathy. Lab Data Attestation: I reviewed the patient's lab results. Lab results narrative: CBC was reviewed and was within normal limits. PT with INR and PTT were reviewed and were within normal limits. Basic metabolic profile was reviewed and was within normal limits. Labs: Laboratory Results - last 24 hr 10/06/22 19:38 WBC 5.0 RBC 4.08 L Hgb 12.5 L Hct 37.1 L MCV 90.9 MCH 30.6 MCHC 33.7 RDW Std Deviation 39.4 RDW Coeff of Pascale 11.9 Plt Count 141 L MPV 11.7 Immature Gran % (Auto) 0.400 Neut % (Auto) 52.1 Lymph % (Auto) 33.7 Bee % (Auto) 7.6 Eos % (Auto) 5.4 H Baso % (Auto) 0.8 Absolute Neuts (auto) 2.6 Absolute Lymphs (auto) 1.69 Nucleated RBC % 0 PT 13.5 INR 1.0 APTT 27.7 Sodium 141 Potassium 3.6 Chloride 113 H Carbon Dioxide 23.0 Anion Gap 5 BUN 13 Creatinine 0.90 Estim Creat Clear Calc 94.13 Est GFR (MDRD) Af Amer 112 Est GFR (MDRD) Non-Af 92 BUN/Creatinine Ratio 14.5 Glucose 88 Calcium 8.6 Radiography Diagnostic Testing: Clinical Impression(s) from Imaging Studies Venous Duplex 10/06/22 19:34 IMPRESSION: Positive for deep venous thrombosis at the saphenofemoral junction. Electronically Signed: Gerry Alcazar MD at 20:51 EDT Reading Location ID and State: [facility] / [place] Tel , Service support , ADDENDUM: 10/06/222104 IMPRESSION: Positive for deep venous thrombosis at the saphenofemoral junction. N.B. : The above Results were Read Back by Gerry Alcazar MD to Enmanuel Chun DO, and understanding confirmed on 10/06/2022 20:58:53 (ET). Electronically Signed: Gerry Alcazar MD at 20:51 EDT , Venous duplex of the right lower extremity was obtained. There is DVT at the junction of the greater saphenous vein and common femoral vein. This was interpreted by the radiologist and was also independently reviewed by myself. Treatment and Re-Evaluation :: Patient states he has done well with Xarelto in the past. Patient was given his first dose of Xarelto here. Patient was given a prescription for Xarelto. Patient was instructed to follow-up with his primary care physician in 5 to 7 days. Patient was instructed return if worse in any way. Patient understood and was agreeable with the plan. All questions were answered. Discharge Plan Triage Chief Complaint: General Illness ED Provider: Enmanuel Chun Dx/Rx/DC Orders Clinical Impression: DVT (deep venous thrombosis) Instructions: ED Deep Vein Thrombosis (DVT) Prescriptions: New Xarelto 15 mg tablet 15 mg PO BID Qty: 42 0RF No Action lisinopril 20 mg tablet 20 mg PO QDAY aspirin 81 mg tablet,chewable 81 mg PO DAILY omeprazole 20 mg capsule,delayed release(DR/EC) 20 mg PO DAILY Primary Care Provider: Vilma Page Referrals: Vilma Page PA [Primary Care Provider] - 5-7 Days Disposition Disposition: Home, Self Care
[2022-10-06 19:52] LABS: Prothrombin Time (Protime)PT. 13.5 SECONDS (11.7-14.9)
[2022-10-06 20:06] LABS: Anion Gap 5 (5-15); BUN 13 mg/dL (7-18); BUN/Creat Ratio 14.5 RATIO (10-20); Calcium,Total 8.6 mg/dL (8.5-10.1); Chloride 113 mmol/L (98-107); EST Glomerular Filtration Rate 92 mL/min (>60); Est Glom Filt Rate - Afr Amer 112 mL/min (>60); Estimated Creatinine Clearance 94.13 ml/min; Glucose 88 mg/dL (74-106); Partial Thromboplast Time 27.7 Seconds (24.1-36.2); Potassium 3.6 mmol/L (3.5-5.1); Sodium Level 141 mmol/L (136-145)
[2022-10-06 21:16] VITALS: BP 167/97; PULSE 67; RESP 16; O2SAT 98
[2022-10-06] MEDS: Rivaroxaban 15 MG Tablet PO (21:31)
== END 2022-10-06 21:35 | disposition home or self-care (01) ==
PROVIDERS: Emergency Provider Emergency Medicine; PCP Physician Assistant; Referring Provider Physician Assistant; Visit Provider Emergency Medicine
DX: I82.4Y1 Acute embolism and thrombosis of unspecified deep veins of right proximal lower extremity (principal); F17.210 Nicotine dependence, cigarettes, uncomplicated; Z86.718 Personal history of other venous thrombosis and embolism; Z86.711 Personal history of pulmonary embolism
CPT/HCPCS: 80048; 85025; 85610; 85730; 93970; 99284; A4216

== ENCOUNTER → 2022-10-23 | Outpatient (CLI) | payer OTHER, SELFPAY ==
--- NOTE | 2022-10-23 08:39 | VDLE_ITS ---
Reason For Study: Thrombophlebitis of bilateral lower extremities. RIGHT LEFT CFV is compressible, spontaneous, phasic, CFV is compressible, spontaneous, phasic, competent and demonstrates normal competent, and demonstrates normal augmentation. augmentation. FV is compressible, spontaneous, phasic, FV is compressible, spontaneous, phasic, competent and demonstrates normal competent and demonstrates normal augmentation. augmentation. POP V is compressible, spontaneous, phasic, POP V is compressible, spontaneous, phasic, competent and demonstrates normal competent and demonstrates normal augmentation. augmentation. T/P Trunk is compressible. T/P Trunk is compressible. PTV is compressible. PTV is compressible. RT PerV is compressible. LT PerV is compressible. RT GSV is DILATED and NONCOMPRESSIBLE from 1- T/P Trunk is partially compressible. 2cm distal to SFJ extending down to the knee. PTV is compressible. No flow seen in color or pulsed wave doppler. LT PerV is compressible. Procedure Chronic DVT noted at T/P Trunk and This is a venous duplex using B-mode, color Gastrocnemius Veins. flow and spectral Doppler. Chronic SVT seen throughout GSV. Exam performed in department. SFJ is competent and measures 0.75 cm. The exam was diagnostic. GSV proximal thigh measures 0.69 x 0.66 cm. GSV at knee measures 0.61 x 0.56 cm. GSV INCOMPETENT throughout for greater than 0.5 seconds. ASV mid thigh is INCOMPETENT for greater than 0.5 seconds and measures 0.61 x 0.70 cm. SSV proximal calf is INCOMPETENT for greater than 0.5 seconds and measures 0.46 x 0.47 cm. VL/Venous Duplex US - Cb Extrem Interpretation Summary Acute superficial vein thrombosis is noted in the right great saphenous vein to within 2 cm of the saphenofemoral junction. Chronic deep vein thrombosis is noted in the left tibioperoneal trunk vein, gas trocnemius vein. Chronic superficial vein thrombosis is noted in the left great saphenous vein. Positive for reflux in the left great saphenous vein, accessory saphenous vein, small saphenous vein. Ordering Physician: Enmanuel Regan Referring Physician: Vilma Page Performed By: Ted Phipps Fara
== END | disposition home or self-care (01) ==
LOC: CVS 08:38
PROVIDERS: PCP Physician Assistant; Referring Provider Surgery Trauma Surgery; Visit Provider Surgery Trauma Surgery
DX: I80.01 Phlebitis and thrombophlebitis of superficial vessels of right lower extremity (principal); I83.93 Asymptomatic varicose veins of bilateral lower extremities
CPT/HCPCS: 93970

== ENCOUNTER → 2023-04-22 | Outpatient (CLI) | payer OTHER, SELFPAY ==
--- NOTE | 2023-04-22 13:31 | VDLE_ITS ---
Reason For Study: Right leg pain RIGHT LEFT CFV is compressible, spontaneous, phasic, CFV is compressible, spontaneous, phasic, competent and demonstrates normal competent, and demonstrates normal augmentation. augmentation. FV is compressible, spontaneous, phasic, competent and demonstrates normal augmentation. POP V is compressible, spontaneous, phasic, competent and demonstrates normal augmentation. T/P Trunk is compressible. PTV is compressible. RT PerV is compressible. GSV is partially compressible with bright intraluminal echoes consistent with Chronic SVT. Procedure This is a venous duplex using B-mode, color flow and spectral Doppler. Exam performed in department. Compared to 10/23/2022. A preliminary report was called and/or faxed to [facility]. VL/Venous Duplex US, Unilateral Interpretation Summary Deep veins of the right lower extremity are patent and compressible segmentally . There is no evidence of right lower extremity deep vein thrombosis. Resolution of prior right great saphenous acute thrombus. Residual chronic rondon ges remain. Ordering Physician: Enmanuel Regan Referring Physician: Vilma Page Performed By: Liza Perez RVFara
== END | disposition home or self-care (01) ==
LOC: CVS 13:30
PROVIDERS: PCP Physician Assistant; Referring Provider Surgery Trauma Surgery; Visit Provider Surgery Trauma Surgery
DX: M79.661 Pain in right lower leg (principal); Z86.718 Personal history of other venous thrombosis and embolism
CPT/HCPCS: 93971

== ENCOUNTER 2023-08-25 07:36 | Emergency (ER) | payer OTHER, SELFPAY ==
[2023-08-25 07:36] VITALS: BP 166/106; PULSE 69; RESP 17; TEMP 36.6; O2SAT 99; BMI 31.3
--- NOTE | 2023-08-25 07:47 | EKG12_ITS ---
Test Reason : CP Blood Pressure : / mmHG Vent. Rate : 060 BPM Atrial Rate : 060 BPM P-R Int : 196 ms QRS Dur : 098 ms QT Int : 378 ms P-R-T Axes : 020 -01 023 degrees QTc Int : 378 ms Normal sinus rhythm Normal ECG Confirmed by Hieu Gonzales ([id number]), newspaper editor managing WILLIAM COONEY ([id number]) on 08/26/2023 2:51:43 PM Referred By: ASHKAN Confirmed By:Hieu Gonzales
--- NOTE | 2023-08-25 07:48 | ED.VIS.CHEST ---
HPI History of Present Illness Chief Complaint: Chest Pain Detail of Chief Complaint: Chest pain Informant: patient Narrative Narrative: Patient presents the emergency department complaint of chest pain that started 8 or 9 weeks ago and has been off-and-on. Pain was sharp and stabbing. Currently rates it a 1 out of 10. Today while at work he was not doing anything strenuous when he started having left-sided sharp chest pains and he felt a little bit lightheaded so he comes in for evaluation. His pain has not been exertional. Patient denies recent travel or surgery. He does have remote history of PEs but no longer anticoagulated. Significant family history of heart disease and that his sister had a CABG in her 40s and his mother had CABG in her 50s. Patient has not had any cardiac stents or heart history himself. Denies recent illness. PFSH [facility] Medical History Alcohol use Anxiety Arthritis Back pain Cardiology follow-up encounter CPAP (continuous positive airway pressure) dependence DVT left calf DVT left thigh DVT right arm Former smoker Gastric reflux History of edema History of pain when walking History of stress test History of ulceration Hypertension Loss of hearing Marijuana use Migraine headache Mitral valve prolapse Osteoarthritis of carpometacarpal (CMC) joint of right thumb Prostate disease Pulmonary embolism Restless legs Shortness of breath on exertion Wears glasses Home Medications ?Medication ?Instructions ?Recorded ?Last Taken ?Type omeprazole 20 mg capsule,delayed 20 mg PO DAILY 03/09/20 08/25/23 History release hawthorn 500 mg capsule (hawthorn 600 mg PO BID 08/25/23 08/25/23 History patel) Allergy/AdvReac Type Severity Reaction Status Date / Time sulfadimethoxine Allergy Mild family Verified 08/25/23 08:41 history of reaction metoprolol (From Lopressor) Allergy Rash Verified 08/25/23 08:41 Family History Sister Diabetes Heart disease Hypertension CAD (coronary artery disease) Mother Heart disease Hypertension CAD (coronary artery disease) Surgical History History of appendectomy History of cardiac catheterization History of hand surgery (~05/2022) History of repair of hiatal hernia S/P appendectomy S/P carpal tunnel release S/P right knee arthroscopy S/P right rotator cuff repair Status post laparoscopic Klaudia fundoplication (~07/2017) Social History household members: spouse and children housing: house current occupational status: employed Smoking Status: Former smoker alcohol intake: current alcohol intake frequency: holidays/special occasions only what type of physical activity do you participate in: none do you feel safe at home: Yes ROS ROS ED Review of Systems ROS Unobtainable: other Constitutional Constitutional ED: Reports lethargy; Denies chills, fever(s), sweats or weight loss Eyes Eyes: Denies blurry vision, change in vision or diplopia ENT ENT ED: Denies rhinorrhea or sore throat Cardiovascular Cardiovascular: Reports chest pain; Denies orthopnea or racing heartbeat Respiratory/Chest Respiratory/Chest: Denies cough, dyspnea, dyspnea on exertion, orthopnea or sputum Gastrointestinal Gastrointestinal: Denies abdominal pain, diarrhea, nausea or vomiting Genitourinary Genitourinary ED: Denies dysuria, hematuria or urinary frequency Musculoskeletal Musculoskeletal: Denies arthralgias, back pain, myalgias or neck pain Integumentary Denies abscess, Abrasions or rash Neurologic Neurologic: Denies headache(s) or weakness Psychiatric Psychiatric: Denies anxiety, depression or suicidal thoughts Endocrine Endocrinology: Denies polydipsia, polyphagia or polyuria Hematologic/Lymphatic Hematologic/Lymphatic: Denies easy bleeding, easy bruising or lymphadenopathy Allergic/Immunologic Allergic/Immunologic ED: Denies mouth swelling, tongue swelling or urticaria EXAM Physical Exam Const Vital Signs: 08/25/23 07:36 08/25/23 08:00 08/25/23 08:05 Temperature 98 F 98.2 F Temperature Source Temporal Oral Pulse Rate 69 62 Respiratory Rate 17 14 Respiratory Effort Respiratory Pattern Blood Pressure 166/106 H 139/91 H Blood Pressure Mean 126 107 Pulse Ox 99 98 Oxygen Delivery Method Room Air Room Air Room Air 08/25/23 08:36 08/25/23 09:00 Temperature Temperature Source Pulse Rate 48 L Respiratory Rate 12 Respiratory Effort Normal Non-Labored Respiratory Pattern Normal Blood Pressure 155/103 H Blood Pressure Mean 120 Pulse Ox 98 Oxygen Delivery Method Room Air Positive well nourished and well developed General Appearance ED: well developed and NAD HEENT Reports TM's clear and moist mucous membranes normocephalic and atraumatic; Negative for trauma or tenderness Tympanic Membrane ED: Yes TM's clear Eyes PERRL and EOMs intact bilaterally General Eye ED: Negative for pale conjunctiva or scleral icterus Neck no lymphadenopathy, supple and no JVD General: Negative for tenderness Chest Wall inspection of chest normal and palpation of chest normal Chest: Negative for tenderness Resp normal respiratory effort and clear to auscultation bilaterally Effort and Inspection: Negative for respiratory distress or pain with movement Auscultation: Negative for rhonchi, wheezes or diminished lung sounds Cardio regular rate, regular rhythm, S1 normal heart sound, S2 normal heart sound and no murmurs Peripheral Pulses: pulses 2+ throughout GI normal to inspection, nondistended, normoactive bowel sounds, soft to palpation, non-tender, non-distended and no masses Back/Spine no CVA tenderness and no thoracic nor lumbar tenderness Extremity normal to inspection General Extremety ED: Negative for edema General Extremity: Negative for edema Neuro oriented x3, CN's II-XII intact bilaterally, no sensory deficits noted and gait normal Sensorium / Orientation: awake, alert, oriented to person, oriented to place and oriented to time Motor Exam: strength 5/5 throughout and strength abnormal Psych mental status grossly normal Skin no rashes or lesions noted and no wounds Heart Score History: Slightly/Non-Suspicious ECG: Normal Age: >45 - <65 years Risk Factors: 1 or 2 Risk Factors Troponin: </= Normal Limit Score: 2 MDM MDM MDM Narrative Medical decision making narrative: Patient presents with nonexertional chest pain ongoing for 8 or 9 weeks. Currently pain mostly resolved. Clinically looks well. EKG obtained arrival showed a sinus rhythm with rate of 60 bpm with no acute ST segment changes. CBC with differential count of 5.2 with hemoglobin 14 and platelet count of 148. Chemistries unremarkable. D-dimer normal at 0.29. Her troponin was normal at 6. LFTs were normal and lipase was normal. Delta troponin was normal at 6. This point his heart score is a 2 and feel he is low risk for acute coronary syndrome. Recommended follow-up with primary care physician within next 5 to 7 days. Advised return if worsening chest pain, increasing shortness of breath, exertional dyspnea, or condition should worsen anyway. Lab Data Attestation: I reviewed the patient's lab results. Labs: Laboratory Results - last 24 hr 08/25/23 08/25/23 07:55 10:14 WBC 5.2 RBC 4.89 Hgb 14.3 Hct 43.9 MCV 89.8 MCH 29.2 MCHC 32.6 RDW Std Deviation 40.6 RDW Coeff of Pascale 12.4 Plt Count 148 L MPV 11.6 Immature Gran % (Auto) 0.400 Neut % (Auto) 51.0 Lymph % (Auto) 35.1 Starke % (Auto) 7.9 Eos % (Auto) 5.0 Baso % (Auto) 0.6 Absolute Neuts (auto) 2.7 Absolute Lymphs (auto) 1.82 Nucleated RBC % 0 D-Dimer Quant (PE/DVT) 0.29 Sodium 140 Potassium 4.0 Chloride 108 H Carbon Dioxide 25.0 Anion Gap 7 BUN 17 Creatinine 0.88 Estim Creat Clear Calc 108.50 Est GFR (MDRD) Af Amer 113 Est GFR (MDRD) Non-Af 94 BUN/Creatinine Ratio 19.3 Glucose 122 H Calcium 9.6 Total Bilirubin 0.60 Direct Bilirubin 0.16 AST 20 ALT 19 Alkaline Phosphatase 61 Troponin I High Sens 6 6 Total Protein 7.0 Albumin 3.9 Globulin 3.1 Lipase 24 Radiography Diagnostic Testing: Clinical Impression(s) from Imaging Studies Chest X-Ray 08/25/23 08:20 IMPRESSION: Mild increased linear markings at the left lung base suggestive of linear atelectasis. Electronically Signed: Atul Vicente MD at 8:34 EDT , 1 view chest x-ray interpreted by myself no evidence of infiltrate or pneumothorax or acute disease process. Radiology felt there was a left lung base linear markings suggestive of linear atelectasis. EKG Initial EKG: Comments: Sinus rhythm with rate of 60 bpm with no acute ST segment changes Discharge Plan Triage Chief Complaint: Chest Pain ED Provider: Apurva Pabon Dx/Rx/DC Orders Clinical Impression: Chest pain Instructions: ED Chest Pain, Uncertain Cause Prescriptions: No Action omeprazole 20 mg capsule,delayed release(DR/EC) 20 mg PO DAILY troy patel 500 mg capsule 600 mg PO BID Primary Care Provider: Vilma Page Referrals: Vilma Page, TRISHA [Primary Care Provider] - 5-7 Days Print Language: Macedonian Disposition Disposition: Home, Self Care
[2023-08-25 08:00] VITALS: BP 139/91; PULSE 62; RESP 14; TEMP 36.8; O2SAT 98
[2023-08-25 08:09] LABS: Absolute Lymphocyte Count 1.82 X10^3/uL (0.83-4.51); Absolute Neutrophil Count 2.7 X10^3/uL (2.0-7.7); Basophil# 0.03 X10^3/uL; Basophil% 0.6 % (0-1); Eosinophil# 0.26 X10^3/uL; Hematocrit 43.9 % (40-54); Hemoglobin 14.3 g/dL (13.0-16.5); Lymphocyte # 1.82 X10^3/ul (0.83-4.51); Lymphocyte % 35.1 % (19-41); Mean Corp Hgb Conc 32.6 g/dL (32-36); Mean Corpuscular Hgb 29.2 pg (27.0-32.0); Mean Corpuscular Volume 89.8 fL (80-94); Mean Platelet Vol. 11.6 fl (6.2-12.0); Monocyte# 0.41 X10^3/uL; Monocyte% 7.9 % (0-10); NRBC Flagged by Analyzer 0 % (0-5); Neutrophil # 2.65 X10^3/uL (2.7-7.7); Platelet Count 148 K/mm3 (150-450); RBC Distribution Width CV 12.4 % (11.6-14.6); RBC Distribution Width SD 40.6 fl (35.1-43.9); Red Blood Count 4.89 M/mm3 (4.6-6.2); White Blood Count 5.2 K/mm3 (4.4-11.0)
[2023-08-25] MEDS: Aspirin 81 MG TAB.CHEW 324 MG PO (08:16)
[2023-08-25] MEDS: 0.9% Normal Saline (1000mL) 1,000 ML 150 ML IV (08:17)
--- NOTE | 2023-08-25 08:20 | RAD_ITS ---
STUDY: X-RAY CHEST REASON FOR EXAM: Male, 62 years old. 6 week history of chest pain. TECHNIQUE: Single AP portable view of the chest. COMPARISON: None. FINDINGS: EKG electrodes are seen. Minimal increased linear markings at the left lung base suggestive of linear atelectasis. There is no demonstrated pleural abnormality. Normal size heart. Normal mediastinum and fadi. Normal visualized pulmonary arteries. Normal visualized aortic arch and descending thoracic aorta. Normal visualized thoracic spine. Normal visualized ribs, clavicles, and shoulders. There is no demonstrated abnormality of the visualized soft tissue structures of the upper abdomen. RAD/Chest 1 View (Portable) IMPRESSION: Mild increased linear markings at the left lung base suggestive of linear atelectasis. Electronically Signed: Atul Vicente MD at 8:34 EDT ,
[2023-08-25 08:23] LABS: D-Dimer Quantitative (DVT/PE) 0.29 FEU/ug/m (0.27-0.49)
[2023-08-25 08:28] LABS: AST(SGOT) 20 U/L (15-37); Alanine Aminotransfer ALT/SGPT 19 U/L (16-61); Albumin, Serum 3.9 g/dL (3.2-5.0); Alkaline Phosphatase 61 U/L (45-117); Anion Gap 7 (5-15); BUN 17 mg/dL (7-18); BUN/Creat Ratio 19.3 RATIO (10-20); Bilirubin, Direct 0.16 mg/dL (0.00-0.30); Calcium,Total 9.6 mg/dL (8.5-10.1); Chloride 108 mmol/L (98-107); Creatinine, Serum 0.88 mg/dL (0.70-1.30); EST Glomerular Filtration Rate 94 mL/min (>60); Est Glom Filt Rate - Afr Amer 113 mL/min (>60); Globulin 3.1 g/dL (2.2-4.2); Glucose 122 mg/dL (74-106); Lipase 24 U/L (13-75); Sodium Level 140 mmol/L (136-145); Troponin-I HS (w/2H Reflex) 6 pg/mL (3.0-78.0)
[2023-08-25 09:00] VITALS: BP 155/103; PULSE 48; RESP 12; O2SAT 98
[2023-08-25 10:06] LABS: Reflex Troponin-HS? (from REC) Y
[2023-08-25 10:36] LABS: Troponin-I HS 6 pg/mL (3.0-78.0)
[2023-08-25 11:08] VITALS: BP 164/96; PULSE 55; RESP 16; TEMP 36.6; O2SAT 98
== END 2023-08-25 11:09 | disposition home or self-care (01) ==
PROVIDERS: Emergency Provider Emergency Medicine; PCP Physician Assistant; Visit Provider Emergency Medicine
DX: R07.9 Chest pain, unspecified (principal); Z87.891 Personal history of nicotine dependence; I10 Essential (primary) hypertension; K21.9 Gastro-esophageal reflux disease without esophagitis; Z79.899 Other long term (current) drug therapy; Z90.49 Acquired absence of other specified parts of digestive tract
CPT/HCPCS: 71045; 80048; 80076; 83690; 84484; 85025; 85379; 93005; 96360; 96361; 99284; J7030; A4216

== ENCOUNTER 2024-11-15 11:41 | Emergency (ER) | payer OTHER, SELFPAY ==
[2024-11-15 11:41] VITALS: BP 145/110; PULSE 97; RESP 16; TEMP 36.1; O2SAT 100; BMI 33.4
--- NOTE | 2024-11-15 12:33 | VDLE_ITS ---
Reason For Study Reason For Study: Elevated D-dimer RIGHT LEFT CFV is compressible, spontaneous, phasic, competent CFV is compressible, spontaneous, phasic, competent, and demonstrates normal augmentation. and demonstrates normal augmentation. FV is compressible, spontaneous, phasic, competent and demonstrates normal augmentation. POP V is compressible, spontaneous, phasic, competent and demonstrates normal augmentation. T/P Trunk is compressible. PTV is compressible. RT PerV is compressible. SSV is partially noncompressible with bright intraluminal echoes consistent with Chronic SVT. Acute superficial vein thrombosis is noted in the right GSV from prox thigh to knee. It is NONCOMPRESSIBLE and dilated. Thrombus filled varicose veins noted at the prox francis area. Procedure This is a venous duplex using B-mode, color flow and spectral Doppler. Exam performed portable in ED. A preliminary report was called and/or faxed to Juanita SANCHES. VL/Venous Duplex US, Unilateral Interpretation Summary Deep veins of the right lower extremity are patent and compressible segmentally . There is no evidence of right lower extremity deep vein thrombosis. Valvular competence appears intact within the p roximal deep venous system on the right . Acute superficial thrombophlebitis is noted in the right great saphenous vein f rom the proximal thigh to the knee. Acute superficial thrombophlebitis is noted in superficial varicosities in the proxim al francis. Chronic venous changes are noted in the right small saphenous vein, which is partially compressible and demonstr ates bright intraluminal echogenicity. The left common femoral vein is patent and compressible . Ordering Physician: Kar Cortes Referring Physician: Vilma Page Performed By: Liza Perez RVT
--- NOTE | 2024-11-15 12:33 | EX.ED.DYSGE1 ---
HPI History of Present Illness Chief Complaint: Lower Extremity Injury [facility] Medical History Alcohol use Anxiety Arthritis Back pain Cardiology follow-up encounter CPAP (continuous positive airway pressure) dependence DVT left calf DVT left thigh DVT right arm Former smoker Gastric reflux History of edema History of pain when walking History of stress test History of ulceration Hypertension Loss of hearing Marijuana use Migraine headache Mitral valve prolapse Osteoarthritis of carpometacarpal (CMC) joint of right thumb Prostate disease Pulmonary embolism Restless legs Shortness of breath on exertion Wears glasses Home Medications ?Medication ?Instructions ?Recorded ?Last Taken ?Type omeprazole 20 mg capsule,delayed 20 mg PO DAILY 03/09/20 08/25/23 History release hawthorn 500 mg capsule (hawthorn 600 mg PO BID 08/25/23 08/25/23 History patel) doxycycline hyclate 100 mg capsule 100 mg PO BID 7 days #14 caps 11/15/24 Unknown Rx Allergy/AdvReac Type Severity Reaction Status Date / Time sulfadimethoxine Allergy Mild family Verified 11/15/24 11:43 history of reaction metoprolol (From Lopressor) Allergy Rash Verified 11/15/24 11:43 Family History Sister Diabetes Heart disease Hypertension CAD (coronary artery disease) Mother Heart disease Hypertension CAD (coronary artery disease) Surgical History History of appendectomy History of cardiac catheterization History of hand surgery (~05/2022) History of repair of hiatal hernia S/P appendectomy S/P carpal tunnel release S/P right knee arthroscopy S/P right rotator cuff repair Status post laparoscopic Klaudia fundoplication (~07/2017) Social History household members: spouse and children housing: house current occupational status: employed Smoking Status: Former smoker alcohol intake: current alcohol intake frequency: holidays/special occasions only what type of physical activity do you participate in: none do you feel safe at home: Yes EXAM Physical Exam Const Vital Signs: 11/15/24 11:41 Temperature 96.9 F L Temperature Source Temporal Pulse Rate 97 Respiratory Rate 16 Blood Pressure 145/110 H Blood Pressure Mean 121 Pulse Ox 100 Oxygen Delivery Method Room Air [facility] MDM Narrative Medical decision making narrative: HISTORY OF PRESENT ILLNESS: Chief complaint: Right leg pain, redness 63-year-old male history of DVT presents with right leg pain and redness. Concerned he may have another DVT. Denies trauma. Notes redness and pain to the anterior lateral right lower extremity. No chest pain or shortness of breath noted. REVIEW OF SYSTEMS: Pertinent positives: Leg pain, swelling and redness Pertinent negatives: Chest pain, shortness of breath PHYSICAL EXAM: Nursing triage notes reviewed, Vital signs reviewed Constitutional: please see mdm Extremities: Trace edema right lower extremity compared to left Neuro: No new focal neurological deficits, cranial nerves II through XII intact, 5/5 strength in all present extremities. Intact sensation intact sensation L1-S1 dermatomal distributions. Intact 5/5 strength in hip flexion (T12-L3). Knee extension (L2-L4). Ankle dorsiflexion (L4-L5). Ankle plantar flexion (S1). Great toe extension (L5). 2+ patellar and Achilles DTRs. Skin: Erythematous warm rash noted to anterior lateral right lower extremity MEDICAL DECISION MAKING: Chief Complaint: please see HPI External records reviewed: Reviewed prior imaging study. Reviewed ultrasound study from September 2023 which shows SVT in the great saphenous vein similar to today's study [facility] Narrative: Patient was initially hemodynamically stable, afebrile and nontoxic-appearing I considered the following differential diagnosis: DVT, cellulitis, necrotizing fasciitis, arterial occlusion Patient's right lower extremity is neurovascular intact not consistent with arterial occlusion. No sign of necrotizing fasciitis. Clinically most suspicious for cellulitis. I obtained DVT ultrasound to further determine if the patient was suffering from a life-threatening etiology. ALL IMAGES (IF OBTAINED) HAVE BEEN PERSONALLY REVIEWED AND INTERPRETED BY MYSELF. DVT study negative for acute DVT did show chronic saphenous vein superficial thrombosis The patient and/or family, caregivers express understanding. The patient and/or family, caregivers agrees with the plan. Shared decision making: I will have a discussion with the patient and or visitors regarding risk/benefits of further testing or admission. They will be made aware of of the risk/benefits inherent in this decision they will be given the opportunity to voice understanding. Total critical care time today provided was at least 0 minutes. This excludes separately billable procedures. Critical care time (if documented) is secondary to the patient having high probability of clinically significant/life threatening deterioration in the patient's condition which required my urgent intervention. Impression: 1. Right leg pain 2. Cellulitis Dispo: Discharge This note was generated with [employer]ched[employer] dictation software. It may contain incorrect words, spelling, and punctuation that were not noted in review of the chart prior to signing. Discharge Plan Triage Chief Complaint: Lower Extremity Injury ED Provider: Kar Cortes Dx/Rx/DC Orders Clinical Impression: Superficial vein thrombosis, Cellulitis Instructions: Cellulitis Dc Prescriptions: New doxycycline hyclate 100 mg capsule 100 mg PO BID 7 Days Qty: 14 0RF No Action omeprazole 20 mg capsule,delayed release(DR/EC) 20 mg PO DAILY hawthorn patel 500 mg capsule 600 mg PO BID Primary Care Provider: Vilma Page Referrals: Enmanuel Regan MD [Med Staff - Active Staff] - Vilma Page PA [Primary Care Provider] - Activity Restrictions/Additional Instructions: Thank you for trusting us with your care today! Your ultrasound results did not show evidence of a DVT. It did show evidence of a superficial vein thrombosis which has been present since your prior ultrasound in 2019 for Please take antibiotics as prescribed. I suspect you have a superficial skin infection called cellulitis. Please take Tylenol (2 pills, 650 mg), ibuprofen (2 pills, 400 mg) every 6 hours as needed for pain and fever control. Please return to the emergency department if your symptoms change or worsen. Please follow with your primary care physician for further outpatient evaluation and management. Print Language: Khmer Disposition Disposition: Home, Self Care
[2024-11-15 13:51] VITALS: BP 145/110; PULSE 97; RESP 16; TEMP 36.1; O2SAT 100
== END 2024-11-15 14:01 | disposition home or self-care (01) ==
PROVIDERS: Emergency Provider Emergency Medicine; PCP Physician Assistant; Visit Provider Emergency Medicine
DX: M79.604 Pain in right leg (principal); Z86.718 Personal history of other venous thrombosis and embolism; I10 Essential (primary) hypertension; K21.9 Gastro-esophageal reflux disease without esophagitis; Z79.899 Other long term (current) drug therapy; Z90.49 Acquired absence of other specified parts of digestive tract; L03.115 Cellulitis of right lower limb
CPT/HCPCS: 93971; 99282

== ENCOUNTER 2024-11-30 17:43 | Emergency (ER) | payer OTHER, SELFPAY ==
[2024-11-30 17:43] VITALS: BP 144/107; PULSE 98; RESP 20; TEMP 36.8; O2SAT 99; BMI 28.3
--- NOTE | 2024-11-30 19:00 | US_ITS ---
PROCEDURE: RIGHT LOWER EXTREMITY VENOUS DUPLEX IMAG/LIMITED/UNI 11/30/2024 REASON FOR EXAM: Right leg pain TECHNIQUE: Procedure Code: USVDUL Modality: US Procedure: VENOUS DUPLEX IMAG/LIMITED/UNI COMPARISON: Lower extremity venous Doppler ultrasounds dated 11/15/2024, 10/06/2022. FINDINGS: No intraluminal echogenicity to suggest the presence of a deep venous thrombosis. Appropriate respiratory variation, augmentation and venous compression is noted. Redemonstrated is chronic nonocclusive superficial thrombosis/thrombophlebitis involving the right great saphenous vein, beginning at roughly 9 mm from the saphenofemoral junction. US/Venous Duplex Imag/Limited/Uni IMPRESSION: No evidence of DVT. Redemonstrated chronic nonocclusive superficial thrombosis /thrombophlebitis involving the right great saphenous vein. Reading Location: [facility]
--- NOTE | 2024-11-30 19:02 | EDS_ITS ---
HPI History of Present Illness Chief Complaint: Lower Extremity Injury Narrative Narrative: Chief complaint and HPI: 63-year-old male with past medical history of DVT, PE, superficial thrombophlebitis, varicose veins presents for evaluation of right lower extremity pain. Patient states 2 days ago he developed pain in his right lower extremity. Concerned he has a blood clot. States he follows vascular surgery regularly for his previous DVTs but is not on anticoagulation. States he takes aspirin. States that he did miss a couple doses of his aspirin. He denies any injury to the leg. He denies any fever, chills, shortness of breath, chest pain, lightheadedness. Review of systems: See HPI Medications: As listed on the chart Allergies: As listed on the chart PFSH: Per chart Vital signs: As listed on the chart. Reviewed. Physical exam: Gen: A&O x3, NAD Head: Normocephalic, atraumatic Eyes: No sclera icterus, conjunctiva clear ENT: Moist mucous membranes Neck: Trachea midline, No JVD CV: RRR, no murmurs Resp: Lungs CTA BL, no w/r/c Musc: Full ROM, no deformity, nonpitting bilateral edema to the bilateral lower extremities-equal in size, right calf tender to palpation compared to the left, no cellulitis, compartments soft, DP/PT pulses +2 bilaterally, good capillary refill, no palpable cords Skin: Warm, dry Neuro: Alert, oriented, grossly intact, sensation intact Psych: Cooperative, appropriate mood and affect [facility] Medical History Alcohol use Anxiety Arthritis Back pain Cardiology follow-up encounter CPAP (continuous positive airway pressure) dependence DVT left calf DVT left thigh DVT right arm Former smoker Gastric reflux History of edema History of pain when walking History of stress test History of ulceration Hypertension Loss of hearing Marijuana use Migraine headache Mitral valve prolapse Osteoarthritis of carpometacarpal (CMC) joint of right thumb Prostate disease Pulmonary embolism Restless legs Shortness of breath on exertion Wears glasses Home Medications ?Medication ?Instructions ?Recorded ?Last Taken ?Type omeprazole 20 mg capsule,delayed 20 mg PO DAILY 08/25/23 History release hawthorn 500 mg capsule (hawthorn 600 mg PO BID 08/25/23 History patel) doxycycline hyclate 100 mg capsule 100 mg PO BID 7 day s #14 caps 11/15/24 Unknown Rx rivaroxaban 15 mg (42)-20 mg (9) See Rx Instructions P O .COMPLEX 11/30/24 Unknown Rx tablets in a starter pack (Xarelto #51 tabs DVT-PE Treatment 30-Day Starter) Allergy/AdvReac Type Severity Reaction Status Date / Time sulfadimethoxine Allergy Mild family Verified 11/30/24 17:44 history of reaction metoprolol (From Lopressor) Allergy Rash Verified 11/30/24 17:44 Family History Sister Diabetes Heart disease Hypertension CAD (coronary artery disease) Mother Heart disease Hypertension CAD (coronary artery disease) Surgical History History of appendectomy History of cardiac catheterization History of hand surgery (~05/2022) History of repair of hiatal hernia S/P appendectomy S/P carpal tunnel release S/P right knee arthroscopy S/P right rotator cuff repair Status post laparoscopic Klaudia fundoplication (~07/2017) Social History household members: spouse and children housing: house current occupational status: employed Smoking Status: Former smoker alcohol intake: current alcohol intake frequency: holidays/special occasions only what type of physical activity do you participate in: none do you feel safe at home: Yes EXAM Physical Exam Const Vital Signs: 11/30/24 17:43 11/30/24 19:43 Temperature 98.3 F Temperature Source Oral Pulse Rate 98 80 Respiratory Rate 20 H Blood Pressure 144/107 H 138/70 H Blood Pressure Mean 119 92 Pulse Ox 99 100 MDM MDM MDM Narrative Medical decision making narrative: 63-year-old male with past medical history of DVT, PE, superficial thrombophlebitis, varicose veins presents for evaluation of right lower extremity pain. Patient states 2 days ago he developed pain in his right lower extremity. Concerned he has a blood clot. States he follows vascular surgery regularly for his previous DVTs but is not on anticoagulation. States he takes aspirin. States that he did miss a couple doses of his aspirin. He denies any injury to the leg. On physical exam, patient has tenderness to palpation of the right calf. There is no cellulitis. No significant swelling compared to the left. Differential diagnosis includes but is not limited to DVT, superficial thrombophlebitis, myofascial spasm. Venous duplex ultrasound ordered. I do not think any x-ray is needed. Ultrasound negative for DVT. Patient has a redemonstrated chronic nonocclusive superficial thrombosis/thrombophlebitis involving the right greater saphenous vein. This is 9 mm from the saphenofemoral junction. Given the extensiveness of this superficial thrombosis, I did reach out to Dr. Regan. Recommendation is to start on Xarelto or Eliquis. Follow-up in his office. Patient was updated of all the results and confirmed understanding. He would like to be placed on Xarelto. First dose given here. Prescription written. Follow-up with vascular surgery. Patient stable to discharge home. Impression: 1. Extensive superficial thrombosis/thrombophlebitis of the right greater saphenous vein Radiography Diagnostic Testing: Clinical Impression(s) from Imaging Studies Venous Duplex 11/30/24 19:00 IMPRESSION: No evidence of DVT. Redemonstrated chronic nonocclusive superficial thrombosis/thrombophlebitis involving the right great saphenous vein. Reading Location: [facility] Discharge Plan Triage Chief Complaint: Lower Extremity Injury ED Provider: Jose Alfredo Whitehead Dx/Rx/DC Orders Clinical Impression: Superficial thrombosis of leg Instructions: Venous Thromboembolism Prescriptions: New Xarelto DVT-PE Treat 30d Start 15 mg (42)- 20 mg (9) tablets,dose pack See Rx Instructions .ROUTE .COMPLEX Qty: 51 0RF Rx Instructions: take one-15 mg tablet twice daily for 21 days, then one-20 mg tablet once daily; must take with meal/food No Action omeprazole 20 mg capsule,delayed release(DR/EC) 20 mg PO DAILY hawthrene patel 500 mg capsule 600 mg PO BID doxycycline hyclate 100 mg capsule 100 mg PO BID 7 Days Qty: 14 0RF Primary Care Provider: Vilma Page Referrals: Enmanuel Regan MD [Med Staff - Active Staff] - 3-5 Days Vilma Page PA [Primary Care Provider] - 3-5 Days Activity Restrictions/Additional Instructions: Take all of your Xarelto. You were given your first dose here in the emergency department. Follow-up with vascular surgery. Return back to the ED symptoms change or worsen. Print Language: Dutch Disposition Disposition: Home, Self Care
[2024-11-30 19:43] VITALS: BP 138/70; PULSE 80; O2SAT 100
== END 2024-11-30 20:55 | disposition home or self-care (01) ==
PROVIDERS: Emergency Provider Surgery; PCP Physician Assistant; Visit Provider Surgery
DX: I82.811 Embolism and thrombosis of superficial veins of right lower extremity (principal); I83.91 Asymptomatic varicose veins of right lower extremity; Z91.148 Patient's other noncompliance with medication regimen for other reason; K21.9 Gastro-esophageal reflux disease without esophagitis; Z79.82 Long term (current) use of aspirin; Z86.718 Personal history of other venous thrombosis and embolism; Z86.711 Personal history of pulmonary embolism; Z79.899 Other long term (current) drug therapy; Z87.891 Personal history of nicotine dependence
CPT/HCPCS: 93971; 99282

== ENCOUNTER → 2025-01-06 | Outpatient (CLI) | payer BC, SELFPAY ==
--- NOTE | 2025-01-06 12:47 | VDLE_ITS ---
Reason For Study Reason For Study: RLE SWelling RIGHT LEFT CFV is compressible, spontaneous, phasic, competent CFV is compressible, spontaneous, phasic, competent, and demonstrates normal augmentation. and demonstrates normal augmentation. FV is compressible, spontaneous, phasic, competent and demonstrates normal augmentation. POP V is compressible, phasic, and INCOMPETENT for greater than 1.0 second. T/P Trunk is compressible. PTV is compressible. RT PerV is compressible. SFJ is INCOMPETENT and measures 0.95 cm. GSV proximal thigh measures 0.97 x 1.08 cm. GSV above knee is INCOMPETENT for greater than 0.5 seconds. GSV below knee is competent. GSV at knee is dilated and NONCOMPRESSIBLE with intraluminal echoes noted. Accessory vein branches at knee and mid calf also appear dilated and NONCOMPRESSIBLE. Finding is consistent with ACUTE SVT. Nonvascularized anechoic area noted at Rt Posterior/Medial knee measuring approximately 6.09cm x 1.71cm. SSV is partially noncompressible with bright intraluminal echoes consistent with Chronic SVT. Procedure Exam performed in department. This is a venous duplex using B-mode, color flow and spectral Doppler. The exam was diagnostic. Patient was scanned in reverse Trendelenburg position during reflux assessment. VL/Venous Duplex US, Unilateral Interpretation Summary Subacute superficial vein thrombosis noted in the right great saphenous vein in the calf and associated accessory saphenous veins. Chronic superficial vein thrombosis noted in the right small saphenous vein. Positive for reflux in the right popliteal vein, saphenofemoral junction, great saphenous vein above the knee. Ordering Physician: Enmanuel Regan Referring Physician: Vilma Page Performed By: Ted Phipps, RVT
== END | disposition home or self-care (01) ==
LOC: CVS 12:45
PROVIDERS: PCP Physician Assistant; Referring Provider Surgery Trauma Surgery; Visit Provider Surgery Trauma Surgery
DX: I83.93 Asymptomatic varicose veins of bilateral lower extremities (principal); I80.01 Phlebitis and thrombophlebitis of superficial vessels of right lower extremity
CPT/HCPCS: 93971